=== PATIENT | female | born 1945 | race Caucasian/White ===

== ENCOUNTER 2017-06-29 06:45 | Inpatient (IN) ==
--- NOTE | 2017-06-24 14:08 | EKG Report ---
Stationary ECG Study [facility] Test Date: 06/24/2017 2:04:57 PM Pat Name: ROGERIO FALCON Department: Room: Gender: F Clerical Assistant: Lillian 06-29-17 : 1945 Requested by: Nader Wilder Order Number: [id number] Reading MD: SKYE PORTILLO Intervals [place] Rate: 79 P: 17 MO: 148 QRS: 18 QRSD: 90 T: 60 QT: 372 QTc: 406 Interpretive Statements SINUS RHYTHM T WAVE ABNORMALITY, POSSIBLE LATERAL ISCHEMIA Electronically Signed On 06-24-17 20:56:15 CDT by SKYE PORTILLO [id number]
[2017-06-24 14:11] LABS: Basophils # 0.1 10*3/uL (0.0-0.2); Basophils % 0.6 % (0.0-0.8); Eosinophils # 0.4 10*3/uL (0.0-0.87); Eosinophils % 4.1 % (0.00-10.9); Hemoglobin 14.2 GM/DL (12.0-16.0); Immature Granulocytes % 0.4 %; Immature Granulocytes Absolute 0.04 #; Lymphocytes # 2.9 10*3/uL (1.4-4.0); Lymphocytes % 27.5 % (21.3-54.2); Mean Corpuscular HGB Conc 35.5 GM/DL (32-36); Mean Corpuscular Hemoglobin 32 PG (27-34); Mean Corpuscular Volume 90.9 FL (87-102); Mean Platelet Volume 10.9 FL (9.6-12.0); Monocytes # 0.6 10*3/uL (0.11-0.8); Monocytes % 5.3 % (1.7-12.7); Neutrophils # 6.5 10*3/uL (1.4-7.4); Neutrophils % 62.1 % (38.7-73.9); Platelet Count 214 T/CUMM (130-400); Red Cell Distribution Width 11.7 % (9.3-17.3); White Blood Count 10.5 T/CUMM (4-12)
[2017-06-24 14:27] LABS: Albumin 3.8 G/DL (3.4-5.0); Bilirubin,Total 0.5 MG/DL (0.2-1.0); Calcium 9.5 MG/DL (8.5-10.1); Osmolality,Calculated 276.1 MOS/KG (273-304); Potassium 4.1 MMOL/L (3.5-5.1); Total Protein 7.9 G/DL (6.4-8.3)
[2017-06-29] MEDS ORDERED: SODIUM CHLORIDE 0.9% 100 ML IV ONE (07:31)
[2017-06-29] MEDS ORDERED: ceFAZolin 1,000 MG VIAL ONE (07:31)
[2017-06-29] MEDS: LACTATED RINGERS 1,000 ML IV SCH ×3 (07:45→12:30)
--- NOTE | 2017-06-29 07:45 | History and Physical Update ---
History and Physical Update - History and Physical H&P was reviewed, the patient examined and there: are no changes in the patients condition since last H&P was completed.
[2017-06-29] MEDS ORDERED: FAMOTIDINE 20 MG TABLET PO ONE (08:08)
[2017-06-29] MEDS ORDERED: LORazepam 0.5 MG TABLET PO ONE (08:08)
[2017-06-29] MEDS ORDERED: INSULIN REGULAR 100 UNIT/ML IV ONE (08:46)
[2017-06-29] MEDS ORDERED: INSULIN REGULAR 100 UNIT/ML ONE (08:55)
[2017-06-29] MEDS ORDERED: MIDAZOLAM 2 MG/2 ML VIAL ONE (09:00)
[2017-06-29] MEDS ORDERED: MIDAZOLAM 2 MG/2 ML VIAL IV ONE (09:05)
[2017-06-29] MEDS ORDERED: HEPARIN 5,000 UNIT/1 ML VIAL ONE (09:31)
[2017-06-29] MEDS ORDERED: VANCOMYCIN 1,000 MG VIAL ONE (09:32)
[2017-06-29] MEDS ORDERED: TISSUE ADHESIVE 1 EACH APPLICATOR TOP ONE (09:37)
[2017-06-29] MEDS ORDERED: PHENYLEPHRINE 20 MG/250 ML PREMIX IV ONE (09:55)
[2017-06-29] MEDS ORDERED: GLYCOPYRROLATE 0.4 MG/2 ML VIAL ONE (09:55)
[2017-06-29] MEDS ORDERED: LIDOCAINE 1% 5 ML VIAL ONE (09:55)
[2017-06-29] MEDS ORDERED: KETOROLAC 30 MG/1 ML VIAL ONE (09:55)
[2017-06-29] MEDS ORDERED: ONDANSETRON 4 MG/2 ML VIAL ONE ×2 (09:55→11:54)
[2017-06-29] MEDS ORDERED: NEOSTIGMINE 10 MG/10 ML VIAL ONE (09:55)
[2017-06-29] MEDS ORDERED: HEPARIN 10,000 UNIT/10 ML VIAL ONE (09:55)
[2017-06-29] MEDS ORDERED: NITROGLYCERIN 50 MG/250 ML BOTTLE IV ONE (09:55)
[2017-06-29] MEDS ORDERED: PROMETHAZINE 25 MG/1 ML VIAL IM PRN (11:21)
[2017-06-29] MEDS ORDERED: oxyCODONE/ACETAMINOPHEN 5-325 MG TABLET PO PRN ×2 (11:21)
[2017-06-29] MEDS ORDERED: HYDROmorphone 2 MG/1 ML VIAL IV PRN ×2 (11:21)
[2017-06-29] MEDS ORDERED: DEXTROSE 50% 25 GM/50 ML SYRINGE IV PRN (11:21)
[2017-06-29] MEDS ORDERED: ONDANSETRON 4 MG/2 ML VIAL IV PRN ×2 (11:21→12:02)
[2017-06-29] MEDS ORDERED: NALOXONE 0.4 MG/ML VIAL IV PRN (11:21)
[2017-06-29] MEDS ORDERED: GLUCAGON 1 MG VIAL IM PRN (11:21)
[2017-06-29] MEDS ORDERED: NITROPRUSSIDE 100 MG in DEXTROSE 5% 250 ML IV SCH (11:30)
[2017-06-29] MEDS ORDERED: PHENYLEPHRINE DRIP 40 MG/250 ML PREMIX IV SCH (11:30)
[2017-06-29] MEDS ORDERED: ASPIRIN EC 81 MG TABLET PO SCH (11:30)
--- NOTE | 2017-06-29 11:30 | Operative Note ---
Date of procedure: 06/29/17 Procedure: Dr. Wilder operative report Modesta Taylor. Surgeon: Meño Anesthesia: Jacque general endotracheal Preoperative diagnosis bilateral high-grade carotid stenosis Postoperative diagnosis: Same Procedure: Right carotid endarterectomy with bovine pericardial patch Indications for the procedure Mrs. Taylor is a 71-year-old woman found to have bilateral high-grade carotid stenoses appears that the right side is the greater of the to have recommended a right carotid endarterectomy I have explained the alternatives risks and complications which she understands and accepts Description of the procedure: After the induction of general endotracheal anesthesia the patient is placed in supine position her neck modestly extended and turned to the left or right neck is prepped with ChloraPrep and draped in the usual fashion began by making a skin incision in the crease below the angle of the mandible this is carried into the subplatysmal space I then dissected along the anterior border of the sternocleidomastoid muscle identifying the end internal jugular vein and the anterior facial vein anterior facial vein is ligated hemoclipped and divided the jugular vein is retracted posteriorly and the common carotid artery is exposed and controlled with a maxi vessel loop the vagus nerve is protected as well and then dissected along the carotid bifurcation after giving 5000 units of intravenous heparin the carotid bifurcation is noted I control the external carotid with a vessel loop and then go under the hypoglossal nerve protecting it and controlling the internal carotid with a vessel loop with adequate anticoagulation Vesseloops were brought up the longitudinal arteriotomy was made from the common carotid through the diseased bifurcation to the more normal distal internal carotid artery reasonable back bleeding from the internal is noted this is back flushed and in-line Valentin-Inahara shunt was placed into the internal backflush and placed in the common carotid to reestablish flow standard endarterectomy was carried out removing the diseased intima and media from the carotid bifurcation it feathered nicely on both internal and external carotids all loose flaps of medial removed under loupe magnification endarterectomized segment was flushed with heparinized saline. Bovine pericardial patch and 5-0 Prolene suture used to close the arteriotomy removing the shunt is appropriate time backflushing internal and external and then flushing again with heparinized saline. With the arteriotomy closed flow was initiated from the common carotid into the external and then restored into the internal carotid artery heparin was partially reversed with 25 mg of protamine the incision looks dry it is irrigated with vancomycin pledget of Surgicel is placed over the arteriotomy Doppler signal in the internal/external and common carotid arteries are quite good incision is closed over quarter inch Jolley drain with a running 3-0 Monocryl in the platysma skin clips on the skin blood loss is estimated at 100 cc sponge needle and aspirate counts are correct and the patient taken to recovery in stable condition Surgeon / Physician: Nader Wilder Results - Labs CBC & BMP: 06/24/17 13:57 06/24/17 13:57 Discharge Plan - Discharge Medications No Action metFORMIN [Glucophage] 1,000 mg PO BID W/MEALS Pravastatin [Pravachol] 20 mg PO DAILY Levothyroxine Tab [Synthroid Tab] 150 mcg PO DAILY@0700 Lisinopril [Prinivil] 5 mg PO DAILY Aspirin [Ecotrin] 81 mg PO DAILY Hydrocodone/Acetaminophen [Hydrocodon-Acetaminophn 10-325] 1 each PO Q8HR PRN PRN Reason: Pain Metoprolol Succinate 100 mg PO DAILY Metformin HCl 500 mg PO DAILY W/LUNCH Areds 2 1 tablet PO BID Gabapentin Cap/Tab [Neurontin Cap/Tab] 600 mg PO BEDTIME Glimepiride [Amaryl] 4 mg PO BID W/MEALS Rosuvastatin Calcium [Crestor] 40 mg PO BEDTIME - Follow Up or Referral - Forms/Instructions
[2017-06-29] MEDS ORDERED: HYDROmorphone 2 MG/1 ML VIAL ONE (11:54)
[2017-06-29] MEDS: HYDROmorphone 2 MG/1 ML VIAL IV PRN ×2 (11:55→12:00)
[2017-06-29] MEDS ORDERED: fentaNYL 100 MCG/2 ML VIAL ONE (11:55)
[2017-06-29] MEDS ORDERED: SEVOFLURANE 1 UNIT/15 MINUTE INH ONE (11:55)
[2017-06-29] MEDS: CLOPIDOGREL 75 MG TABLET PO SCH (13:08)
[2017-06-29] MEDS: ASPIRIN EC 81 MG TABLET PO SCH (13:08)
--- NOTE | 2017-06-29 13:50 | Cardiology Consult Note ---
History of Present Illness - Data of Consult Patient: known to practice within the last 3 years Consult date: 06/29/17 Requesting Physician: Nader Wilder Primary care physician: Emy Escalante - Consult Narrative Reason for consult: follow post op RCAE History of present illness: Clicker Operator: Dr. Castillo PCP: Dr. Escalante Ms. Taylor is a 71 year old female who has a history of coronary artery disease, diabetes, carotid artery stenosis, hypertension, hypercholesterolemia, GERD, hypothyroidism, aortic sclerosis, former tobacco use. She is status post three-vessel CABG 07/12/01 with VG to RCA, VG to OM, and VG to diagonal. She is status post diagonal vein graft stent 07/05/14. Last cardiac cath 08/28/17 showed patent diagonal vein graft stent site, patent vein graft to the obtuse marginal branch, patent vein graft to right coronary, 40% stenosis to the LAD, and ejection fraction 60%. She has chronic low back pain which limits her mobility and is followed by Dr. Green at the pain clinic. She also takes Prilosec for GE reflux symptoms. CTA carotid 06/28/2017 showed 90% proximal right ICA stenosis and 80% left ICA stenosis with patent vertebral arteries bilaterally. She had no TIA symptoms and was set up with Dr. Bui to discuss carotid endarterectomy which he underwent today. She is seen postoperatively in the ICU resting comfortably. She is requiring low-dose vasopressor support at this time. She complains of some mild neck discomfort and a headache at this time. She is in sinus bradycardia with rates in the 50s. Her right neck incision is well approximated with ovi intact. IMPRESSION/PLAN: 1. S/P RIGHT : 2. BILATERAL CAROTID STENOSIS: 3. CORONARY ARTERY DISEASE: 4. HYPERTENSION: 5. CC: Nader Wilder MD - Home Medications and Allergies Home Medications: Home Medications Medication Instructions Recorded Confirmed Type Aspirin [Ecotrin] 81 mg PO DAILY 02/04/16 06/29/17 History Levothyroxine Tab [Synthroid Tab] 150 mcg PO DAILY@0700 02/04/16 06/29/17 History Lisinopril [Prinivil] 5 mg PO DAILY 02/04/16 06/29/17 History Pravastatin [Pravachol] 20 mg PO DAILY 02/04/16 06/29/17 History metFORMIN [Glucophage] 1,000 mg PO BID W/MEALS 02/04/16 06/29/17 History Areds 2 1 tablet PO BID 06/24/17 06/29/17 History Gabapentin Cap/Tab [Neurontin 600 mg PO BEDTIME 06/24/17 06/29/17 History Cap/Tab] Glimepiride [Amaryl] 4 mg PO BID W/MEALS 06/24/17 06/29/17 History Hydrocodone/Acetaminophen 1 each PO Q8HR PRN 06/24/17 06/29/17 History [Hydrocodon-Acetaminophn 10-325] Metformin HCl 500 mg PO DAILY W/LUNCH 06/24/17 06/24/17 History Metoprolol Succinate 100 mg PO DAILY 06/24/17 06/29/17 History Rosuvastatin Calcium [Crestor] 40 mg PO BEDTIME 06/24/17 06/29/17 History Allergies/Adverse Reactions: Allergies Allergy/AdvReac Type Severity Reaction Status Date / Time No Known Allergies Allergy Verified 06/29/17 07:14 Medical,Surgical,& Family Hx - Medical History Cardio: History of: CAD, Hypertension, Cardiovascular Problems (DR CASTILLO. LAST VISIT 05/2017.) Neurology: History of: Peripheral Neuropathy (LEGS.) No history of: Seizures HEENT: History of: Ear Problem (HEARING LOSS RT EAR.), Dental Problems (BRIDGES. ) Endocrine: History of: Diabetes Mellitus (NIDDM), Dyslipidemia, Thyroid Disorder Respiratory: History of: Bronchitis (PAST HX.), Respiratory Problems (FLU VAC- YES 2015; PNEU VAC- NO.) Gastrointestinal: History of: Diverticulitis/ Diverticulosis, GERD, Hemorrhoids (INTERNAL HEMORRHOIDS.), Polyps Musculoskeletal: History of: Back/Neck Problems, Musculoskeletal Problems ( lumbar disk disease, SPINAL STENOSIS.) Hematology: No history of: Blood Transfusion Reaction Other: No history of: Anesthesia Reactions - Surgical History Cardiac Surgeries: Sugical HX of: Cardiac Catheterization, Cardiac Surgery ( cabg [address] GALICIA, vein graph stent 2002) HEENT Surgeries: Surgical HX of: Eye Surgery (cataract sly), Tonsilectomy & Adenoidectomy Patient denies: Thyroid Surgery Abdominal Surgeries: Surgical HX of: Appendectomy, Cholecystectomy, Colonoscopy , EGD Reproductive Surgeries: Surgical HX of;: Section (X3), Hysterectomy Orthopedic Surgeries: Surgical HX of;: Orthopedic Surgery (BILATERAL RCR), Spinal Surgery, Total Hip Replacement (RT HIP), Total Knee Replacement (left) - Family History Family History: Denies;: Family Cancer - Social History Smoking Status: Former smoker Frequency of Alcohol Use: None Type of Drug Use: None Physical Examination Vital Signs Temp Pulse Resp BP Pulse Ox 97.4 F L 68 20 121/66 95 06/29/17 07:23 06/29/17 07:23 06/29/17 07:23 06/29/17 07:23 06/29/17 07:23 Result/EKG - Labs CBC & BMP: 06/24/17 13:57 06/24/17 13:57 Labs: Laboratory Results - last 24 hr 06/29/17 08:07 POC Glucose 299 H Quality Measures - VTE Contraindication to Pharmacological VTE Prophylaxis: High Risk of Bleeding
--- NOTE | 2017-06-29 14:08 | Anesthesia Post-Op ---
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
--- NOTE | 2017-06-29 14:23 | Cardiology Consult Note ---
Assessment and Plan (1) Postop carotid endarterectomy surveillance, encounter for Status: Acute Assessment and plan: 1. 71-year-old WF with hypertension, dyslipidemia, diabetes, status post carotid artery endarterectomy this morning doing well clinically 2. Status post CABG 3 vessel 2000, with patent vein grafts August 2014, and no ischemia on myocardial scan May 2017 3. Bradycardia postop with heart rate in the upper 40s lower 50s; she reportedly took all her medications this morning including her Toprol 100; hold for now and observe heart rate and blood pressure. 4. She is currently on low-dose margarette-, would give small normal saline bolus and wean margarette-as able. 5. Check EKG and troponin in the morning. Current Visit: Yes (2) CAD (coronary artery disease) of artery bypass graft Status: Acute Current Visit: Yes History of Present Illness - Consult Narrative History of present illness: Ms. Taylor is a 71 [address] Dr. alfonso immediately status post carotid artery endarterectomy. She expectantly has a sore neck but has no chest discomfort shortness of breath and is alert and oriented. Her is with her. She has not had any recent chest discomfort shortness of breath dizziness. She denies any history of stroke or TIA. She denies history of [place] but acknowledges her remote history of CABG. CC: Nader Wilder MD - Home Medications and Allergies Home Medications: Home Medications Medication Instructions Recorded Confirmed Type Aspirin [Ecotrin] 81 mg PO DAILY 02/04/16 06/29/17 History Levothyroxine Tab [Synthroid Tab] 150 mcg PO DAILY@0700 02/04/16 06/29/17 History Lisinopril [Prinivil] 5 mg PO DAILY 02/04/16 06/29/17 History Pravastatin [Pravachol] 20 mg PO DAILY 02/04/16 06/29/17 History metFORMIN [Glucophage] 1,000 mg PO BID W/MEALS 02/04/16 06/29/17 History Areds 2 1 tablet PO BID 06/24/17 06/29/17 History Gabapentin Cap/Tab [Neurontin 600 mg PO BEDTIME 06/24/17 06/29/17 History Cap/Tab] Glimepiride [Amaryl] 4 mg PO BID W/MEALS 06/24/17 06/29/17 History Hydrocodone/Acetaminophen 1 each PO Q8HR PRN 06/24/17 06/29/17 History [Hydrocodon-Acetaminophn 10-325] Metformin HCl 500 mg PO DAILY W/LUNCH 06/24/17 06/24/17 History Metoprolol Succinate 100 mg PO DAILY 06/24/17 06/29/17 History Rosuvastatin Calcium [Crestor] 40 mg PO BEDTIME 06/24/17 06/29/17 History Allergies/Adverse Reactions: Allergies Allergy/AdvReac Type Severity Reaction Status Date / Time No Known Allergies Allergy Verified 06/29/17 07:14 Medical,Surgical,& Family Hx - Medical History Cardio: History of: CAD, Hypertension, Cardiovascular Problems (DR VAN. LAST VISIT 05/2017.) Neurology: History of: Peripheral Neuropathy (LEGS.) No history of: Seizures HEENT: History of: Ear Problem (HEARING LOSS RT EAR.), Dental Problems (BRIDGES. ) Endocrine: History of: Diabetes Mellitus (NIDDM), Dyslipidemia, Thyroid Disorder Respiratory: History of: Bronchitis (PAST HX.), Respiratory Problems (FLU VAC- YES 2015; PNEU VAC- NO.) Gastrointestinal: History of: Diverticulitis/ Diverticulosis, GERD, Hemorrhoids (INTERNAL HEMORRHOIDS.), Polyps Musculoskeletal: History of: Back/Neck Problems, Musculoskeletal Problems ( lumbar disk disease, SPINAL STENOSIS.) Hematology: No history of: Blood Transfusion Reaction Other: No history of: Anesthesia Reactions - Surgical History Cardiac Surgeries: Sugical HX of: Cardiac Catheterization, Cardiac Surgery ( cabg [address] GALICIA, vein graph stent 2002) HEENT Surgeries: Surgical HX of: Eye Surgery (cataract sly), Tonsilectomy & Adenoidectomy Patient denies: Thyroid Surgery Abdominal Surgeries: Surgical HX of: Appendectomy, Cholecystectomy, Colonoscopy , EGD Reproductive Surgeries: Surgical HX of;: Section (X3), Hysterectomy Orthopedic Surgeries: Surgical HX of;: Orthopedic Surgery (BILATERAL RCR), Spinal Surgery, Total Hip Replacement (RT HIP), Total Knee Replacement (left) - Family History Family History: Denies;: Family Cancer - Social History Smoking Status: Former smoker Frequency of Alcohol Use: None Type of Drug Use: None Physical Examination Vital Signs Temp Pulse Resp BP Pulse Ox 97.4 F L 68 20 121/66 95 06/29/17 07:23 06/29/17 07:23 06/29/17 07:23 06/29/17 07:23 06/29/17 07:23 General: Present: Appears Well, No Apparent Distress Neck: Present: Other (Heavily bandaged neck which limits her mobility per) Cardiac: Present: Reg Rate and Rhythm, No Murmur Lungs: Present: Clear Ascult./Percussion, No Wheezes Abdomen: Present: Soft, Non-Tender Extremities: Absent: Edema, Cyanosis Result/EKG - Labs CBC & BMP: 06/24/17 13:57 06/24/17 13:57 Labs: Laboratory Results - last 24 hr 06/29/17 08:07 POC Glucose 299 H Quality Measures - VTE Contraindication to Pharmacological VTE Prophylaxis: High Risk of Bleeding
--- NOTE | 2017-06-29 16:22 | Event Note ---
Ms. Taylor is awake alert and oriented neurologically intact good handgrip tongue midline no facial asymmetry neck looks good with no hematoma she has been a bit hypotensive and we are holding her antihypertensives Jose Daniel-Synephrine overnight overall appears to be doing well
[2017-06-29] MEDS: GLIMEPIRIDE 4 MG TABLET PO SCH (17:27)
[2017-06-29] MEDS ORDERED: ROSUVASTATIN 20 MG TABLET PO SCH (21:00)
[2017-06-29] MEDS ORDERED: GABAPENTIN 600 MG TABLET PO SCH (21:00)
[2017-06-30] MEDS: LACTATED RINGERS 1,000 ML IV SCH ×4 (02:59→08:16)
--- NOTE | 2017-06-30 06:43 | EKG Report ---
Stationary ECG Study [facility] Test Date: 06/30/2017 6:41:27 AM Pat Name: ROGERIO FALCON Department: Room: 106 Gender: F Radio Maintainer: SANGEETHA : 1945 Requested by: Giovanni Aviles Order Number: [id number] Reading MD: RENEE BEDOLLA Intervals [place] Rate: 59 P: -3 DE: 128 QRS: -11 QRSD: 82 T: 133 QT: 417 QTc: 416 Interpretive Statements SINUS RHYTHM@59BPM LOW QRS VOLTAGE IN PRECORDIAL LEADS VOLTAGE CRITERIA FOR LVH NST , POSSIBLE ISCHEMIA Electronically Signed On 07-03-17 16:44:23 CDT by RENEE BEDOLLA [email or web address]
[2017-06-30] MEDS ORDERED: LEVOTHYROXINE 150 MCG TABLET PO SCH (07:00)
--- NOTE | 2017-06-30 08:18 | Cardiology Progress Note ---
<Sarahy Delgado E - Last Filed: 06/30/17 08:05> Assessment and Plan - Time spent with patient Time spent with patient: Less than 30 minutes (1) Postop carotid endarterectomy surveillance, encounter for Status: Acute Assessment and plan: See plan of care listed below. Current Visit: Yes (2) CAD (coronary artery disease) of artery bypass graft Status: Chronic Assessment and plan: See plan of care listed below. Current Visit: Yes (3) S/P CABG x 3 Status: Chronic Assessment and plan: See plan of care listed below. Current Visit: Yes (4) Hypertension Status: Chronic Assessment and plan: See plan of care listed below. Current Visit: Yes (5) Diabetes mellitus Status: Chronic Assessment and plan: See plan of care listed below. Current Visit: Yes Cardiology - PN: Subj Interval history: Extra Hand: Dr. Castillo SUMMARY: Ms. Taylor is a 71-year-old WF who is admitted for right carotid endarterectomy. She has a history of coronary artery disease, hypertension, diabetes, dyslipidemia, GERD. She is status [place] [address] Mosquera followed by a vein graft stent in 2002. She was noted to have patent vein grafts August 2014 and no ischemia on myocardial scan May 2017. We were asked to follow her postoperatively. 2016: Ms. Taylor is up to the bedside chair upon exam this morning. She reports she is feeling well and she states she is ready to go home. Her right radial arterial line was just discontinued and her right neck drain remains in place. Her right neck incision is well approximated with ovi intact, no redness, or edema at site. Vital signs have been stable. We will continue to follow along. Dr. Gastelum to follow with further plan and addendum. IMPRESSION/PLAN: 1. POST OP RIGHT : Post op day #1. Patient is doing well. Continue Plavix, aspirin, statin. Would reintroduce beta yulissa and GAL inhibitor when okay with attending. 2. CORONARY ARTERY DISEASE: She was noted to have patent vein grafts August 2014 and no ischemia on myocardial scan May 2017. 3. S/P CABG X3: She is status post three-v[place] [address] Mosquera followed by a vein graft stent in 2002. 4. HYPERTENSION: Currently well controlled. Will continue to monitor and adjust accordingly. 5. DIABETES: Continue to monitor glucose levels. Exam (Progress Note) - Constitutional Vitals: Period Temp Pulse Resp BP Sys/Galvan Pulse Ox Last 24 Hr 97.1 F-99.1 F 46-70 12-19 89-167/26-71 92-100 Exam: General appearance: Appears well. Pleasant and cooperative. Overweight, no acute distress. Head exam: Present: normal inspection, normocephalic, atraumatic. Absent: hematoma, laceration Eye exam: Present: EOMI. Absent: conjunctival injection, nystagmus, periorbital swelling, scleral icterus, laceration to eyelids, jaundice Pupils: Present: PERRL. Absent: constricted, dilated, fixed, irregular, unequal ENT exam: Present: normal exam, normal external ear exam, mucous membranes moist. Heavily bandaged neck limits mobility. Neck exam: Present: normal inspection, midline trachea. Absent: masses, lymphadenopathy, tenderness, thyromegaly Respiratory exam: Present: clear to auscultation bilaterally. Absent: accessory muscle use, chest wall tenderness, rales, rhonchi, wheezing. Cardiovascular exam: Present: regular rate and rhythm. Absent: gallop, JVD, rubs GI/Abdominal exam: Present: normal bowel sounds, soft. Absent: distended, firm , hernia, mass, tenderness. Extremities exam: Present: Normal Gait, No Clubbing, No Cyanosis, Upper Extr. Pulses 2+, Lower Extr. Pulses 2+, No edema. Capillary refill less than 3 seconds. Musculoskeletal: Present: No Fluid Collection, No Pain, Normal Range of Motion Back exam: Present: normal inspection. Absent: muscle spasm, vertebral tenderness Neurological exam: Present: awake, alert, oriented X3, Moves all extremities well without hemiparesis or paralysis. Grossly intact without resting or essential tremor Psychiatric exam: Present: normal affect, normal mood Skin exam: Present: normal color, warm, dry, intact. Right neck incision well approximated, ovi intact, s redness. Surgical drain in place. Absent: cyanosis, diaphoretic, rash, urticaria Result/EKG - Labs CBC & BMP: 06/24/17 13:57 06/24/17 13:57 Lab Results: I have reviewed the past 24 hour labs Labs: Laboratory Results - last 24 hr 06/29/17 06/29/17 06/30/17 08:07 16:17 04:25 POC Glucose 299 H 195 H Troponin I < 0.015 06/30/17 07:12 POC Glucose 156 H Troponin I - EKG EKG results: interpreted by me, sinus rhythm Quality Measures - VTE Contraindication to Pharmacological VTE Prophylaxis: High Risk of Bleeding Specialty Discharge - Follow Up or Referrals Follow up with: Nader Wilder MD [Physician] - 07/07/17 2:30 pm (APPT. WITH IN ONE WEEK ON @ 2:30PM) <Giovanni Gastelum - Last Filed: 06/30/17 10:13> Assessment and Plan (1) Postop carotid endarterectomy surveillance, encounter for Status: Acute Current Visit: Yes (2) CAD (coronary artery disease) of artery bypass graft Status: Chronic Current Visit: Yes Exam (Progress Note) - Constitutional Vitals: Period Temp Pulse Resp BP Sys/Galvan Pulse Ox Last 24 Hr 97.1 F-99.1 F 46-70 12-19 89-167/- 92-100 Result/EKG - Labs CBC & BMP: 06/24/17 13:57 06/24/17 13:57 Labs: Laboratory Results - last 24 hr 06/29/17 06/30/17 06/30/17 16:17 04:25 07:12 POC Glucose 195 H 156 H Troponin I < 0.015
--- NOTE | 2017-06-30 08:21 | Event Note ---
Ms. Taylor is awake alert oriented vital signs are good neurologically intact with good handgrip tongue midline no facial numbness. Neck looks good with no hematoma have removed the drain. Stopping all IVs a Cabrera regular breakfast and probably home this afternoon
[2017-06-30] MEDS: ASPIRIN EC 81 MG TABLET PO SCH (08:28)
[2017-06-30] MEDS: CLOPIDOGREL 75 MG TABLET PO SCH (08:28)
[2017-06-30] MEDS: GLIMEPIRIDE 4 MG TABLET PO SCH (08:28)
[2017-06-30] MEDS ORDERED: METOPROLOL SUCCINATE XL 100 MG TABLET PO SCH (09:00)
[2017-06-30] MEDS ORDERED: PRAVASTATIN 20 MG TABLET PO SCH (09:00)
[2017-06-30 09:17] VITALS: BP 120/61
--- NOTE | 2017-06-30 11:23 | Pathology Report from [facility] ---
[facility] ACCESSION # : [id number] PATIENT NAME : Rogerio Taylor ORDERING DR : IRIS CARRILLO MD CLINICAL HX: Asymptomatic high grade stenosis of both internal carotid arteries POST-OP DX: Same SPECIMEN INFO: Right carotid artery plaque GROSS DESCRIPTION: The specimen is received in formalin labeled with the patients name and consists of three yellow-pink fragments of endarterectomy tissue collectively measuring 3.5 x 2.8 cm with calcifications present within the lumen. Float Operator tissue submitted in one cassette following decalcification. DIAGNOSIS FOR ROGERIO TAYLOR: RIGHT CAROTID ARTERY PLAQUE, ENDARTERECTOMY: Calcified atheromatous plaque. COLLECTED DATE: 06/29/2017 [facility] REPORT DATE: 06/30/2017 ELECTRONICALLY SIGNED BY: Juliet Espinoza M.D. 06/30/2017 - 9:41:34 MTDAbundio
--- NOTE | 2017-06-30 16:32 | Discharge Summary ---
Hospital Course - Hospital Course Hospital Course: Modesta Taylor is a 71-year-old woman admitted for right carotid endarterectomy with bilateral carotid stenosis much worse on the right than the left she has done well postoperatively she is fully awake alert and oriented her vital signs are stable her neck looks good with no hematoma she is neurologically intact tongue is midline voice is normal good handgrip she [place] in the intensive care unit tolerating a diet beds have not been available upstairs therefore she is discharged from the intensive care unit today. She will go home with 81 mg aspirin and 75 mg Plavix so she will resume metformin this afternoon or in the morning and is still on glyburide she has [place] at home for pain have advised her wound care exercise restrictions expected recovery possible complications driving restrictions I will see her in the office next week for staple removal Specialty Discharge - Follow Up or Referrals Follow up with: Nader Wilder MD [Physician] - 07/07/17 2:30 pm (APPT. WITH IN ONE WEEK ON @ 2:30PM) Discharge Plan - Discharge Data Disposition: Disch To Home/Self Care Condition at Discharge: Stable Discharge Diet: diabetic diet Activity: resume usual activities as tolerated Hygiene: may shower Weight Bearing at Discharge: full weight bearing Driving: not until seen by doctor Contact your physician if you experience:: fever over 101, Redness or swelling, Bleeding - Discharge Medications New Clopidogrel [Plavix] 75 mg PO DAILY #60 tablet Continue metFORMIN [Glucophage] 1,000 mg PO BID W/MEALS Pravastatin [Pravachol] 20 mg PO DAILY Levothyroxine Tab [Synthroid Tab] 150 mcg PO DAILY@0700 Lisinopril [Prinivil] 5 mg PO DAILY Aspirin [Ecotrin] 81 mg PO DAILY Hydrocodone/Acetaminophen [Hydrocodon-Acetaminophn 10-325] 1 each PO Q8HR PRN PRN Reason: Pain Metoprolol Succinate 100 mg PO DAILY Gabapentin Cap/Tab [Neurontin Cap/Tab] 600 mg PO BEDTIME Glimepiride [Amaryl] 4 mg PO BID W/MEALS Rosuvastatin Calcium [Crestor] 40 mg PO BEDTIME No Action Metformin HCl 500 mg PO DAILY W/LUNCH Areds 2 1 tablet PO BID - Follow Up or Referral Follow Up: Nader Wilder MD [Physician] - 07/07/17 2:30 pm (APPT. WITH IN ONE WEEK ON @ 2:30PM) - Forms/Instructions Exam - Constitutional Vitals: Period Temp Pulse Resp BP Sys/Galvan Pulse Ox Last 24 Hr 97.5 F-97.9 F 49-70 - 89-167/ 92-100 Discharge Results Procedures and tests throughout hospitalization: Pending Orders 06/29/17 12:35 MRSA Surveillence, Inf Control Routine Labs on day of discharge: Labs from last 24 hours 06/30/17 06/30/17 06/30/17 15:54 11:10 07:12 POC Glucose 286 H 309 H 156 H Troponin I 06/30/17 06/29/17 04:25 16:17 POC Glucose 195 H Troponin I < 0.015 DS: Provider Date of admission: 06/29/17 06:45 Primary care physician: Emy Escalante, Attending physician on admission: Nader Wilder MD Consults: 06/29/17 11:30 Consult to Physician [CONS] Routine Comment: patient known to you Consulting Provider: Demarco Castillo Consulting Provider Notified: Yes Consult to Specialist Group: Cardiology Person Notified: [email or web address] Date Notified: 06/29/17 Time Notified: 12:40 Discharging clinician: Nader Wilder MD
== END 2017-06-30 16:50 | disposition home or self-care (01) | DRG 39 ==
LOC: N.SDSINP 06:45 → N.ICU 11:52
PROVIDERS: ADMIT Surgery; ATTEND Surgery

== ENCOUNTER 2017-08-24 06:40 | Inpatient (IN) ==
[2017-08-12 11:43] LABS: Basophils % 0.5 % (0.0-0.8); Eosinophils # 0.3 10*3/uL (0.0-0.87); Hematocrit 41.2 VOL% (35.7-47.0); Hemoglobin 14.4 GM/DL (12.0-16.0); Immature Granulocytes % 0.3 %; Immature Granulocytes Absolute 0.02 #; Lymphocytes # 1.7 10*3/uL (1.4-4.0); Lymphocytes % 25.4 % (21.3-54.2); Mean Corpuscular Hemoglobin 32 PG (27-34); Mean Corpuscular Volume 92.2 FL (87-102); Mean Platelet Volume 10.8 FL (9.6-12.0); Monocytes # 0.5 10*3/uL (0.11-0.8); Monocytes % 6.8 % (1.7-12.7); Neutrophils # 4.1 10*3/uL (1.4-7.4); Platelet Count 168 T/CUMM (130-400); Red Blood Count 4.47 MC/CUMM (3.8-5.5); White Blood Count 6.6 T/CUMM (4-12)
[2017-08-12 12:47] LABS: Osmolality,Calculated 284.8 MOS/KG (273-304); Potassium 4.1 MMOL/L (3.5-5.1)
[~2017-08-24 06:40] MED LIST: HEPARIN 5,000 UNIT/1 ML VIAL ONE; VANCOMYCIN 500 MG VIAL ONE
[2017-08-24] MEDS ORDERED: ceFAZolin 1,000 MG VIAL ONE (08:14)
[2017-08-24] MEDS: LACTATED RINGERS 1,000 ML IV SCH ×3 (08:21→21:06)
[2017-08-24] MEDS ORDERED: NEOSTIGMINE 10 MG/10 ML VIAL ONE ×2 (08:24→10:34)
[2017-08-24] MEDS ORDERED: ONDANSETRON 4 MG/2 ML VIAL ONE ×2 (08:24→10:31)
[2017-08-24] MEDS ORDERED: PROPOFOL 200 MG/20 ML VIAL IV ONE ×2 (08:24→10:33)
[2017-08-24] MEDS ORDERED: DEXAMETHASONE 10 MG/1 ML VIAL ONE (08:24)
[2017-08-24] MEDS ORDERED: LABETALOL 100 MG/20 ML VIAL IV ONE ×2 (08:24→10:30)
[2017-08-24] MEDS ORDERED: GLYCOPYRROLATE 0.4 MG/2 ML VIAL ONE ×2 (08:24→10:30)
[2017-08-24] MEDS ORDERED: ROCURONIUM 100 MG/10 ML VIAL IV ONE ×2 (08:24→10:34)
[2017-08-24] MEDS ORDERED: LIDOCAINE 2% 5 ML VIAL ONE (08:24)
[2017-08-24] MEDS ORDERED: oxyCODONE/ACETAMINOPHEN 5-325 MG TABLET PO PRN ×2 (10:05)
[2017-08-24] MEDS ORDERED: HYDROmorphone 2 MG/1 ML VIAL IV PRN ×2 (10:05)
[2017-08-24] MEDS ORDERED: GLUCAGON 1 MG VIAL IM PRN (10:05)
[2017-08-24] MEDS ORDERED: PROMETHAZINE 25 MG/1 ML VIAL IM PRN (10:05)
[2017-08-24] MEDS ORDERED: NALOXONE 0.4 MG/ML VIAL IV PRN (10:05)
[2017-08-24] MEDS ORDERED: DEXTROSE 50% 25 GM/50 ML VIAL IV PRN (10:05)
[2017-08-24] MEDS ORDERED: ONDANSETRON 4 MG/2 ML VIAL IV PRN (10:05)
[2017-08-24] MEDS ORDERED: DEXAMETHASONE 4 MG/1 ML VIAL ONE (10:30)
[2017-08-24] MEDS ORDERED: CLOPIDOGREL 75 MG TABLET PO SCH (10:30)
[2017-08-24] MEDS ORDERED: ETOMIDATE 20 MG/10 ML VIAL IV ONE (10:30)
[2017-08-24] MEDS ORDERED: ASPIRIN EC 81 MG TABLET PO SCH (10:30)
[2017-08-24] MEDS ORDERED: PHENYLEPHRINE DRIP 20 MG/250 ML PREMIX IV ONE (10:33)
[2017-08-24] MEDS ORDERED: fentaNYL 100 MCG/2 ML VIAL ONE (10:33)
[2017-08-24] MEDS ORDERED: DESFLURANE 1 UNIT/15 MINUTE INH ONE (10:33)
[2017-08-24] MEDS ORDERED: NITROGLYCERIN DRIP 50 MG/250 ML BOTTLE IV ONE (10:34)
[2017-08-24 10:57] LABS: Troponin I Only < 0.015 NG/ML (0.00-0.045)
[2017-08-24] MEDS ORDERED: NITROGLYCERIN DRIP 50 MG/250 ML BOTTLE IV SCH (12:30)
[2017-08-24] MEDS: PHENYLEPHRINE DRIP 40 MG/250 ML PREMIX IV SCH (12:45)
[2017-08-24] MEDS: NITROPRUSSIDE 100 MG in DEXTROSE 5% 250 ML IV SCH (13:32)
[2017-08-24] MEDS: ASPIRIN EC 81 MG TABLET PO SCH (15:40)
[2017-08-24] MEDS: CLOPIDOGREL 75 MG TABLET PO SCH (15:40)
[2017-08-24] MEDS: LISINOPRIL 5 MG TABLET PO SCH (16:09)
[2017-08-24 17:31] LABS: Troponin I Only < 0.015 NG/ML (0.00-0.045)
[2017-08-24] MEDS: GLIMEPIRIDE 4 MG TABLET PO SCH (17:45)
[2017-08-24] MEDS ORDERED: ROSUVASTATIN 20 MG TABLET PO SCH (21:00)
[2017-08-24] MEDS ORDERED: GABAPENTIN 600 MG TABLET PO SCH (21:00)
[2017-08-24] MEDS: METOPROLOL SUCCINATE XL 100 MG TABLET PO SCH (21:11)
[2017-08-25 00:46] LABS: Troponin I Only < 0.015 NG/ML (0.00-0.045)
[2017-08-25] MEDS: LACTATED RINGERS 1,000 ML IV SCH ×2 (05:38→08:01)
[2017-08-25] MEDS ORDERED: LEVOTHYROXINE 150 MCG TABLET PO SCH (07:30)
[2017-08-25] MEDS: LISINOPRIL 5 MG TABLET PO SCH (08:04)
[2017-08-25] MEDS: CLOPIDOGREL 75 MG TABLET PO SCH (08:05)
[2017-08-25] MEDS: METOPROLOL SUCCINATE XL 100 MG TABLET PO SCH (08:06)
[2017-08-25] MEDS: GLIMEPIRIDE 4 MG TABLET PO SCH ×2 (08:07→16:43)
[2017-08-25] MEDS: ASPIRIN EC 81 MG TABLET PO SCH (08:07)
[2017-08-25] MEDS ORDERED: PRAVASTATIN 20 MG TABLET PO SCH (09:00)
[2017-08-25] MEDS ORDERED: METOPROLOL SUCCINATE XL 100 MG TABLET PO SCH (09:00)
[2017-08-25] MEDS ORDERED: DEXTROSE 50% 25 GM/50 ML VIAL IV PRN (11:57)
[2017-08-25] MEDS ORDERED: GLUCAGON 1 MG VIAL IM PRN (11:57)
[2017-08-25] MEDS ORDERED: metFORMIN 500 MG TABLET PO SCH ×2 (12:00→17:00)
[2017-08-25] MEDS: PHENYLEPHRINE DRIP 40 MG/250 ML PREMIX IV SCH (12:29)
[2017-08-25] MEDS: NITROPRUSSIDE 100 MG in DEXTROSE 5% 250 ML IV SCH (12:29)
[2017-08-25] MEDS: INSULIN REGULAR 100 UNIT/ML SUBCUT SCH ×2 (14:33→16:37)
[2017-08-25 16:56] VITALS: BP 180/85
== END 2017-08-25 16:50 | disposition home or self-care (01) | DRG 39 ==
LOC: N.SDSINP 06:40 → N.ICU 11:09 → N.4E 08-25 11:40
PROVIDERS: ADMIT Surgery; ATTEND Surgery

== ENCOUNTER 2018-03-21 17:55 | Inpatient (IN) ==
[2018-03-21] MEDS ORDERED: DEXTROSE 50% 25 GM/50 ML SYRINGE IV ONE (18:22)
[2018-03-21] MEDS ORDERED: SODIUM CHLORIDE 0.9% 1,000 ML IV STA (18:36)
[2018-03-21 18:44] LABS: Basophils # 0.1 10*3/uL (0.0-0.2); Basophils % 0.6 % (0.0-0.8); Hematocrit 47.4 VOL% (35.7-47.0); Hemoglobin 15.2 GM/DL (12.0-16.0); Immature Granulocytes % 4.7 %; Immature Granulocytes Absolute 1.05 #; Lymphocytes # 2.2 10*3/uL (1.4-4.0); Lymphocytes % 9.8 % (21.3-54.2); Mean Corpuscular HGB Conc 32.1 GM/DL (32-36); Mean Corpuscular Hemoglobin 31 PG (27-34); Mean Corpuscular Volume 96.9 FL (87-102); Mean Platelet Volume 11.4 FL (9.6-12.0); Monocytes # 2.1 10*3/uL (0.11-0.8); Monocytes % 9.4 % (1.7-12.7); Neutrophils # 16.8 10*3/uL (1.4-7.4); Neutrophils % 75.5 % (38.7-73.9); Platelet Count 293 T/CUMM (130-400); Red Blood Count 4.89 MC/CUMM (3.8-5.5); Red Cell Distribution Width 12.1 % (9.3-17.3); White Blood Count 22.2 T/CUMM (4-12)
[2018-03-21] MEDS ORDERED: DEXTROSE 50% 25 GM/50 ML VIAL IV STA (19:05)
[2018-03-21 19:18] LABS: Albumin 3.8 G/DL (3.4-5.0); Bilirubin,Total 0.4 MG/DL (0.2-1.0); Calcium 8.9 MG/DL (8.5-10.1); Osmolality,Calculated 298.7 MOS/KG (273-304); Potassium 5.2 MMOL/L (3.5-5.1); Total Protein 7.9 G/DL (6.4-8.3)
[2018-03-21 19:21] LABS: Lactic Acid > 15.0 MMOL/L (0.4-2.0)
[2018-03-21] MEDS ORDERED: ONDANSETRON 4 MG/2 ML VIAL IV STA (20:08)
[2018-03-21] MEDS ORDERED: SODIUM CHLORIDE 0.9% 2,000 ML IV STA (20:38)
[2018-03-21] MEDS ORDERED: CEFEPIME 2,000 MG in SODIUM CHLORIDE 0.9% 100 ML IV STA (20:56)
[2018-03-21] MEDS ORDERED: VANCOMYCIN INJ 1,000 MG in SODIUM CHLORIDE 0.9% 250 ML IV STA (20:56)
[2018-03-21 21:16] LABS: Band Neutrophils 5 % (0-10); Lymphocytes 11 % (20-55); Metamyelocytes 2 %; Myelocytes 2 %; Platelet Estimate Normal; Segmented Neutrophils 74 % (50-85); Total Cells Counted 100
[2018-03-21] MEDS ORDERED: CEFEPIME 2,000 MG VIAL ONE (21:16)
[2018-03-21] MEDS ORDERED: SODIUM CHLORIDE 0.9% 100 ML IV ONE (21:17)
[2018-03-21] MEDS ORDERED: metroNIDAZOLE INJ 500 MG in PREMIX 1 EACH IV STA (22:58)
[2018-03-22] MEDS ORDERED: KETOROLAC 30 MG/1 ML VIAL IV STA (00:52)
[2018-03-22] MEDS ORDERED: MORPHINE 4 MG/1 ML VIAL IV STA (00:53)
[2018-03-22] MEDS ORDERED: ONDANSETRON 4 MG/2 ML VIAL IV PRN (01:13)
[2018-03-22] MEDS ORDERED: SODIUM CHLORIDE 0.9% 1,000 ML IV SCH (01:30)
[2018-03-22 01:41] LABS: Apearance,Urine Slightly Hazy (Clear); Bacteria,Urine Few /HPF (Few); Bilirubin,Urine Negative (Negative); Blood, Urine Moderate mg/dL (Negative); Glucose,Urine (UA) 50 mg/dL (Negative); Ketones,Urine 5 mg/dL (Negative); Mucus,Urine Occasional /LPF (Occasional); Nitrite,Urine Negative (Negative); Protein,Urine 100 MG/DL; RBC,Urine 23 /HPF (0-4); Urine Color Yellow (Yellow); Urine Specific Gravity 1.009 (1.001-1.035); Urine Urobilinogen < 2.0 EU/DL (0.2-1.0); WBC,Urine 10 /HPF (0-6)
[2018-03-22] MEDS ORDERED: DEXTROSE 50% 25 GM/50 ML SYRINGE IV ONE (02:01)
[2018-03-22] MEDS ORDERED: DEXTROSE 50% 25 GM/50 ML VIAL IV PRN (02:02)
[2018-03-22] MEDS ORDERED: DEXTROSE 50% 25 GM/50 ML VIAL IV ONE ×2 (02:02→02:03)
[2018-03-22] MEDS ORDERED: GLUCAGON 1 MG VIAL IM PRN (02:02)
[2018-03-22] MEDS: DEXTROSE 5% NACL 0.9% 1,000 ML IV SCH ×20 (02:26→20:24)
[2018-03-22] MEDS: metroNIDAZOLE INJ 500 MG in PREMIX 1 EACH IV SCH ×3 (03:11→18:08)
[2018-03-22] MEDS: MORPHINE 4 MG/1 ML VIAL IV PRN (04:21)
[2018-03-22] MEDS ORDERED: LORazepam 2 MG/1 ML VIAL IV ONE (05:00)
[2018-03-22 05:27] LABS: Basophils # 0.1 10*3/uL (0.0-0.2); Basophils % 0.7 % (0.0-0.8); Eosinophils % 0.1 % (0.00-10.9); Hematocrit 42.7 VOL% (35.7-47.0); Hemoglobin 13.6 GM/DL (12.0-16.0); Immature Granulocytes % 5.5 %; Immature Granulocytes Absolute 1.01 #; Lymphocytes # 1.6 10*3/uL (1.4-4.0); Lymphocytes % 8.4 % (21.3-54.2); Mean Corpuscular HGB Conc 31.9 GM/DL (32-36); Mean Corpuscular Hemoglobin 32 PG (27-34); Mean Platelet Volume 12.2 FL (9.6-12.0); Monocytes # 1.5 10*3/uL (0.11-0.8); Monocytes % 8.4 % (1.7-12.7); Neutrophils # 14.2 10*3/uL (1.4-7.4); Neutrophils % 76.9 % (38.7-73.9); Platelet Count 232 T/CUMM (130-400); Red Blood Count 4.27 MC/CUMM (3.8-5.5); Red Cell Distribution Width 12.4 % (9.3-17.3); White Blood Count 18.4 T/CUMM (4-12)
[2018-03-22] MEDS ORDERED: NALOXONE 0.4 MG/ML VIAL ONE ×2 (05:39→05:43)
[2018-03-22] MEDS ORDERED: NALOXONE 0.4 MG/ML VIAL IV ONE (05:43)
[2018-03-22] MEDS ORDERED: FLUMAZENIL 0.5 MG/5 ML VIAL IV ONE (05:45)
[2018-03-22] MEDS ORDERED: FLUMAZENIL 1 MG/10 ML VIAL IV ONE (05:45)
[2018-03-22] MEDS ORDERED: VECURONIUM 10 MG VIAL IV ONE (05:53)
[2018-03-22] MEDS ORDERED: ETOMIDATE 20 MG/10 ML VIAL IV ONE (05:54)
[2018-03-22] MEDS ORDERED: NOREPINEPHRINE 4 MG/4 ML VIAL IV ONE ×2 (05:54→21:15)
[2018-03-22 06:00] LABS: Albumin 2.8 G/DL (3.4-5.0); Bilirubin,Total 0.7 MG/DL (0.2-1.0); Calcium 7.9 MG/DL (8.5-10.1); Osmolality,Calculated 311.7 MOS/KG (273-304); Total Protein 6.3 G/DL (6.4-8.3)
[2018-03-22] MEDS ORDERED: PROPOFOL 1,000 MG/100 ML BOTTLE IV ONE (06:02)
[2018-03-22] MEDS ORDERED: NOREPINEPHRINE 8 MG in SODIUM CHLORIDE 0.9% 242 ML IV PRN (06:03)
[2018-03-22 06:05] LABS: Band Neutrophils 4 % (0-10); Eosinophils 1 % (0-10); Lymphocytes 11 % (20-55); Segmented Neutrophils 76 % (50-85); Total Cells Counted 100
[2018-03-22 06:07] LABS: Platelet Estimate Normal; Potassium 6.6 MMOL/L (3.5-5.1)
[2018-03-22] MEDS ORDERED: DOPamine 800 MG/250 ML PREMIX IV PRN (06:13)
[2018-03-22] MEDS ORDERED: CALCIUM GLUCONATE 1,000 MG/10 ML VIAL IV ONE (06:18)
[2018-03-22] MEDS ORDERED: PHENYLEPHRINE DRIP 40 MG/250 ML PREMIX IV PRN (06:23)
[2018-03-22] MEDS ORDERED: CALCIUM GLUCONATE 1,000 MG in SODIUM CHLORIDE 0.9% 100 ML IV ONE (06:30)
[2018-03-22] MEDS ORDERED: SODIUM POLYSTYRENE SULFATE 15 GM/60 ML BOTTLE PO ONE (06:30)
[2018-03-22] MEDS: LEVOTHYROXINE 150 MCG TABLET PO SCH (06:32)
[2018-03-22] MEDS ORDERED: LEVOFLOXACIN INJ 100 ML IV ONE (06:49)
[2018-03-22] MEDS: PROPOFOL 1,000 MG/100 ML BOTTLE IV SCH ×2 (06:56→22:52)
[2018-03-22] MEDS ORDERED: INSULIN REGULAR 100 UNIT/ML SUBCUT SCH (07:30)
[2018-03-22] MEDS ORDERED: METOPROLOL SUCCINATE XL 100 MG TABLET PO SCH (09:00)
[2018-03-22 09:37] LABS: ABG Oxygen Saturation 98.4 % (95-100); ABG PCO2 39.9 MM HG (35-48); ABG TCO2 5.2 MMOL/L (23-27)
[2018-03-22 09:44] LABS: ABG Base Excess < -30.0 MMOL/L (-2.5-2.5)
[2018-03-22 09:49] LABS: ABG PH 6.679 (7.35-7.45)
[2018-03-22] MEDS ORDERED: SODIUM BICARBONATE 50 MEQ/50 ML SYRINGE IV ONE ×7 (10:00→15:10)
[2018-03-22] MEDS ORDERED: ATROPINE 1 MG/10 ML SYRINGE ONE (10:14)
[2018-03-22] MEDS: SODIUM CHLORIDE 0.9% 1,000 ML IV SCH ×2 (10:30→20:25)
[2018-03-22] MEDS: DEXTROSE 10% 1,000 ML IV SCH ×2 (10:45→23:14)
[2018-03-22] MEDS: INSULIN REGULAR DRIP 100 ML IV PRN ×3 (10:50→20:37)
[2018-03-22] MEDS: DEXAMETHASONE 4 MG/1 ML VIAL IV SCH ×2 (10:50→17:18)
[2018-03-22] MEDS: ASPIRIN EC 81 MG TABLET PO SCH (10:51)
[2018-03-22] MEDS: ENOXAPARIN 30 MG/0.3 ML SYRINGE SUBCUT SCH (10:51)
[2018-03-22] MEDS: CLOPIDOGREL 75 MG TABLET PO SCH (10:51)
[2018-03-22 11:17] LABS: Hepatitis A Ab IgM Quant 0.16 Index; Hepatitis A Ab IgM Result Negative (Negative); Hepatitis B Core IgM Quant 0.11 Index; Hepatitis B Core IgM Result Negative (Negative); Hepatitis B Surface Ag Quant < 0.10 Index; Hepatitis B Surface Ag Result Negative (Negative); Hepatitis C Virus Ab Quant 0.02 Index; Hepatitis C Virus Ab Result Negative (Negative)
[2018-03-22 11:18] LABS: ABG Base Excess -28.8 MMOL/L (-2.5-2.5); ABG HCO3 5.4 MMOL/L (20-26); ABG PCO2 29.9 MM HG (35-48); ABG TCO2 5.1 MMOL/L (23-27)
[2018-03-22 11:20] LABS: ABG PH 6.821 (7.35-7.45)
[2018-03-22 12:21] LABS: Blood Urea Nitrogen 97 MG/DL (7-18); Calcium 6.4 MG/DL (8.5-10.1); Osmolality,Calculated 334.8 MOS/KG (273-304); Sodium 137 MMOL/L (136-145)
[2018-03-22 12:22] LABS: Glucose 682 MG/DL (74-106)
[2018-03-22 12:23] LABS: Potassium 7.2 MMOL/L (3.5-5.1)
[2018-03-22 12:24] LABS: Lactic Acid 14.9 MMOL/L (0.4-2.0)
[2018-03-22] MEDS ORDERED: FUROSEMIDE 40 MG/4 ML VIAL IV ONE (12:26)
[2018-03-22] MEDS: COLESEVELAM 625 MG TABLET PO SCH ×2 (12:35→19:59)
[2018-03-22] MEDS ORDERED: CALCIUM CHLORIDE 1,000 MG in SODIUM CHLORIDE 0.9% 100 ML IV ONE (13:30)
[2018-03-22] MEDS ORDERED: AMIODARONE 150 MG/3 ML VIAL ONE (13:42)
[2018-03-22 13:48] LABS: ABG Base Excess -24.9 MMOL/L (-2.5-2.5); ABG HCO3 7.3 MMOL/L (20-26); ABG Oxygen Saturation 99.6 % (95-100); ABG PCO2 27.5 MM HG (35-48); ABG TCO2 6.2 MMOL/L (23-27)
[2018-03-22 13:50] LABS: ABG PH 6.968 (7.35-7.45)
[2018-03-22] MEDS ORDERED: EPINEPHrine 1 MG/10 ML SYRINGE ONE (13:52)
[2018-03-22] MEDS ORDERED: CALCIUM CHLORIDE 1,000 MG/10 ML SYRINGE IV ONE (13:52)
[2018-03-22 14:42] LABS: ABG Base Excess -18.9 MMOL/L (-2.5-2.5); ABG HCO3 9.4 MMOL/L (20-26); ABG Oxygen Saturation 99.6 % (95-100); ABG PCO2 30.7 MM HG (35-48); ABG TCO2 10.4 MMOL/L (23-27)
[2018-03-22 14:45] LABS: ABG PH 7.105 (7.35-7.45)
[2018-03-22] MEDS ORDERED: EPINEPHrine 1 MG/10 ML SYRINGE IV ONE ×2 (14:45→15:05)
[2018-03-22 15:46] LABS: ABG Oxygen Saturation 99.3 % (95-100); ABG PCO2 35.8 MM HG (35-48); ABG PO2 545.6 MM HG (80-95); ABG TCO2 15.1 MMOL/L (23-27); Glucose Heart Surgery 280 MG/DL (74-106); Hemoglobin Heart Surgery 13.8 G/DL (12.0-16.0)
[2018-03-22 15:48] LABS: ABG PH 7.209 (7.35-7.45)
[2018-03-22 16:42] LABS: ABG Base Excess -17.8 MMOL/L (-2.5-2.5); ABG HCO3 10.2 MMOL/L (20-26); ABG Oxygen Saturation 99.4 % (95-100); ABG PCO2 31.6 MM HG (35-48); ABG TCO2 11.2 MMOL/L (23-27)
[2018-03-22 16:43] LABS: ABG PO2 554.9 MM HG (80-95)
[2018-03-22 16:46] LABS: ABG PH 7.127 (7.35-7.45)
[2018-03-22] MEDS: SODIUM BICARB INJ 150 MEQ in DEXTROSE 5% 850 ML IV SCH (17:29)
[2018-03-22 18:09] LABS: ABG Base Excess -18.8 MMOL/L (-2.5-2.5); ABG HCO3 10.8 MMOL/L (20-26); ABG Oxygen Saturation 99.4 % (95-100); ABG PCO2 26.6 MM HG (35-48); ABG TCO2 8.6 MMOL/L (23-27)
[2018-03-22 19:00] LABS: ABG HCO3 8.5 MMOL/L (20-26); ABG Oxygen Saturation 98.9 % (95-100); ABG PCO2 23.1 MM HG (35-48); ABG PO2 233.5 MM HG (80-95); ABG TCO2 9.2 MMOL/L (23-27)
[2018-03-22] MEDS: PHENYLEPHRINE INJ 160 MG in SODIUM CHLORIDE 0.9% 234 ML IV PRN (19:00)
[2018-03-22] MEDS: NOREPINEPHRINE 16 MG in SODIUM CHLORIDE 0.9% 234 ML IV PRN ×2 (19:00→21:51)
[2018-03-22 19:05] LABS: ABG PH 7.184 (7.35-7.45)
[2018-03-22 19:34] LABS: Lactic Acid > 15.0 MMOL/L (0.4-2.0)
[2018-03-22] MEDS: CEFEPIME 1,000 MG in SYRINGE 1 EACH IV SCH (20:53)
[2018-03-22] MEDS ORDERED: ACETAMINOPHEN 500 MG TABLET PO ONE (22:04)
[2018-03-22] MEDS ORDERED: ADENOSINE 6 MG/2 ML VIAL IV ONE (22:21)
[2018-03-22 22:22] LABS: ABG Base Excess -15.2 MMOL/L (-2.5-2.5); ABG Oxygen Saturation 99.8 % (95-100); ABG PCO2 22.6 MM HG (35-48); ABG PH 7.272 (7.35-7.45); ABG TCO2 9.4 MMOL/L (23-27)
[2018-03-22 23:00] LABS: Potassium 3.6 MMOL/L (3.5-5.1)
[2018-03-23] MEDS: DEXAMETHASONE 4 MG/1 ML VIAL IV SCH ×3 (00:03→17:40)
[2018-03-23] MEDS: MAGNESIUM SULF RIDER 2 GM in PREMIX 1 EACH IV PRN ×2 (00:32→02:17)
[2018-03-23] MEDS: PHENYLEPHRINE INJ 160 MG in SODIUM CHLORIDE 0.9% 234 ML IV PRN ×2 (00:43→09:50)
[2018-03-23] MEDS: metroNIDAZOLE INJ 500 MG in PREMIX 1 EACH IV SCH ×3 (01:24→18:36)
[2018-03-23] MEDS: SODIUM BICARB INJ 150 MEQ in DEXTROSE 5% 850 ML IV SCH ×2 (04:15→16:38)
[2018-03-23 04:32] LABS: ABG Base Excess -8.4 MMOL/L (-2.5-2.5); ABG HCO3 17.7 MMOL/L (20-26); ABG Oxygen Saturation 99.6 % (95-100); ABG PCO2 22.1 MM HG (35-48); ABG PH 7.423 (7.35-7.45); ABG TCO2 12.8 MMOL/L (23-27)
[2018-03-23 04:36] LABS: Basophils # 0.1 10*3/uL (0.0-0.2); Basophils % 0.2 % (0.0-0.8); Hematocrit 31.7 VOL% (35.7-47.0); Hemoglobin 11.6 GM/DL (12.0-16.0); Immature Granulocytes % 1.4 %; Immature Granulocytes Absolute 0.41 #; Lymphocytes # 1.6 10*3/uL (1.4-4.0); Lymphocytes % 5.2 % (21.3-54.2); Mean Corpuscular HGB Conc 36.6 GM/DL (32-36); Mean Corpuscular Hemoglobin 32 PG (27-34); Mean Corpuscular Volume 86.8 FL (87-102); Mean Platelet Volume 11.3 FL (9.6-12.0); Monocytes # 2.9 10*3/uL (0.11-0.8); Monocytes % 9.8 % (1.7-12.7); NRBC # 0.17 10*3/uL; Neutrophils # 24.8 10*3/uL (1.4-7.4); Neutrophils % 83.4 % (38.7-73.9); Platelet Count 145 T/CUMM (130-400); Red Blood Count 3.65 MC/CUMM (3.8-5.5); Red Cell Distribution Width 12.6 % (9.3-17.3); White Blood Count 29.7 T/CUMM (4-12)
[2018-03-23 04:53] LABS: Lactic Acid 13.4 MMOL/L (0.4-2.0)
[2018-03-23 05:06] LABS: Band Neutrophils 3 % (0-10); Hypochromasia Slight; Lymphocytes 6 % (20-55); Ovalocytes Slight; Platelet Estimate Normal; Segmented Neutrophils 78 % (50-85); Total Cells Counted 100
[2018-03-23 05:07] LABS: Blood Urea Nitrogen 62 MG/DL (7-18); Burr Cells Slight; Calcium 7.1 MG/DL (8.5-10.1); Glucose 238 MG/DL (74-106); Potassium 3.8 MMOL/L (3.5-5.1); Sodium 143 MMOL/L (136-145)
[2018-03-23] MEDS: LEVOTHYROXINE 150 MCG TABLET PO SCH (05:55)
[2018-03-23] MEDS: ASPIRIN EC 81 MG TABLET PO SCH (09:22)
[2018-03-23] MEDS: CLOPIDOGREL 75 MG TABLET PO SCH (09:22)
[2018-03-23] MEDS: PANTOPRAZOLE 40 MG VIAL IV SCH ×2 (09:23→22:03)
[2018-03-23] MEDS: ENOXAPARIN 30 MG/0.3 ML SYRINGE SUBCUT SCH (09:24)
[2018-03-23] MEDS: COLESEVELAM 625 MG TABLET PO SCH ×2 (09:43→18:31)
[2018-03-23] MEDS: PROPOFOL 1,000 MG/100 ML BOTTLE IV SCH ×2 (10:15→19:17)
[2018-03-23] MEDS ORDERED: INSULIN REGULAR DRIP 100 ML IV PRN (10:30)
[2018-03-23] MEDS ORDERED: SODIUM CHLORIDE 0.9% 1,000 ML IV PRN (11:58)
[2018-03-23 13:04] LABS: CKMB % 3.4 %
[2018-03-23 13:05] LABS: Troponin I Only 1.79 NG/ML (0.00-0.045)
[2018-03-23 15:12] LABS: CKMB % 3.4 %
[2018-03-23 15:18] LABS: Troponin I Only 1.47 NG/ML (0.00-0.045)
[2018-03-23] MEDS ORDERED: AMINO ACIDS IV SCH (17:00)
[2018-03-23] MEDS ORDERED: [UNRECOGNIZED DRUG - OTHER] IV SCH (17:00)
[2018-03-23] MEDS ORDERED: DEXTROSE 10% 1,000 ML IV PRN (17:00)
[2018-03-23] MEDS ORDERED: TRACE ELEMENTS IV SCH ×2 (17:00→19:59)
[2018-03-23] MEDS ORDERED: MULTIVITAMIN IV SCH ×2 (17:00→19:59)
[2018-03-23 18:26] LABS: Osmolality,Calculated 290.4 MOS/KG (273-304)
[2018-03-23] MEDS: POTASSIUM CHLORIDE 20 MEQ/15 ML UDCUP PER TUBE SCH ×2 (19:35→22:03)
[2018-03-23 19:58] LABS: ABG HCO3 27.1 MMOL/L (20-26); ABG Oxygen Saturation 99.8 % (95-100); ABG PCO2 28.6 MM HG (35-48); ABG PH 7.542 (7.35-7.45); ABG TCO2 21.1 MMOL/L (23-27)
[2018-03-23] MEDS ORDERED: [UNRECOGNIZED DRUG - OTHER] IV SCH (19:59)
[2018-03-23] MEDS ORDERED: INSULIN REGULAR IV SCH (19:59)
[2018-03-23 21:10] LABS: ABG Oxygen Saturation 99.7 % (95-100); ABG PCO2 34.6 MM HG (35-48); ABG PH 7.499 (7.35-7.45); ABG TCO2 23.4 MMOL/L (23-27)
[2018-03-23] MEDS: INSULIN REGULAR 100 UNIT/ML SUBCUT SCH (21:18)
[2018-03-23] MEDS: CEFEPIME 1,000 MG in SYRINGE 1 EACH IV SCH (22:03)
[2018-03-23 22:25] LABS: ABG Base Excess 5.3 MMOL/L (-2.5-2.5); ABG HCO3 29.2 MMOL/L (20-26); ABG Oxygen Saturation 99.8 % (95-100); ABG PCO2 36.7 MM HG (35-48); ABG PH 7.498 (7.35-7.45); ABG TCO2 24.7 MMOL/L (23-27)
[2018-03-24] MEDS: INSULIN REGULAR 100 UNIT/ML SUBCUT SCH ×6 (00:06→21:29)
[2018-03-24] MEDS: DEXAMETHASONE 4 MG/1 ML VIAL IV SCH (00:06)
[2018-03-24] MEDS: PROPOFOL 1,000 MG/100 ML BOTTLE IV SCH ×5 (01:26→18:16)
[2018-03-24] MEDS: metroNIDAZOLE INJ 500 MG in PREMIX 1 EACH IV SCH ×3 (02:37→18:10)
[2018-03-24] MEDS: POTASSIUM CHLORIDE 20 MEQ/15 ML UDCUP PER TUBE SCH ×2 (02:37→04:04)
[2018-03-24 03:09] LABS: Basophils % 0.1 % (0.0-0.8); Hematocrit 34.2 VOL% (35.7-47.0); Hemoglobin 12.5 GM/DL (12.0-16.0); Immature Granulocytes % 1.1 %; Lymphocytes # 0.8 10*3/uL (1.4-4.0); Lymphocytes % 3.1 % (21.3-54.2); Mean Corpuscular HGB Conc 36.5 GM/DL (32-36); Mean Corpuscular Hemoglobin 31 PG (27-34); Mean Corpuscular Volume 85.7 FL (87-102); Mean Platelet Volume 11.8 FL (9.6-12.0); Monocytes # 1.7 10*3/uL (0.11-0.8); Monocytes % 6.6 % (1.7-12.7); Neutrophils # 22.6 10*3/uL (1.4-7.4); Neutrophils % 89.1 % (38.7-73.9); Platelet Count 80 T/CUMM (130-400); Red Blood Count 3.99 MC/CUMM (3.8-5.5); Red Cell Distribution Width 13.3 % (9.3-17.3); White Blood Count 25.3 T/CUMM (4-12)
[2018-03-24 03:10] LABS: Immature Granulocytes Absolute 0.28 #; NRBC # 0.24 10*3/uL
[2018-03-24 03:14] LABS: ABG Base Excess 7.4 MMOL/L (-2.5-2.5); ABG HCO3 30.8 MMOL/L (20-26); ABG Oxygen Saturation 98.7 % (95-100); ABG PCO2 38.7 MM HG (35-48); ABG PH 7.518 (7.35-7.45); ABG PO2 185.4 MM HG (80-95); ABG TCO2 31.9 MMOL/L (23-27)
[2018-03-24 03:16] LABS: INR 1.3; PT Patient Result 13.8 SECS; Partial Thromboplastin Time 29.5 SECS (0-40)
[2018-03-24 03:34] LABS: Prealbumin 14.5 MG/DL (20-40)
[2018-03-24 03:35] LABS: Alanine Aminotransferase 184 U/L (13-56); Albumin 2.3 G/DL (3.4-5.0); Alkaline Phosphatase 120 U/L (45-117); Aspartate Amino Transferase 374 U/L (0-37); Blood Urea Nitrogen 37 MG/DL (7-18); Calcium 6.4 MG/DL (8.5-10.1); Glucose 412 MG/DL (74-106); Osmolality,Calculated 302.5 MOS/KG (273-304); Potassium 3.5 MMOL/L (3.5-5.1); Sodium 139 MMOL/L (136-145); Total Protein 4.9 G/DL (6.4-8.3)
[2018-03-24 03:37] LABS: Troponin I Only 0.789 NG/ML (0.00-0.045)
[2018-03-24 03:38] LABS: Lactic Acid 2.8 MMOL/L (0.4-2.0)
[2018-03-24 04:27] LABS: Band Neutrophils 4 % (0-10); Lymphocytes 2 % (20-55); Nucleated Red Blood Cells 3 (0-5); Platelet Estimate Decreased; Segmented Neutrophils 88 % (50-85); Total Cells Counted 100
[2018-03-24 04:28] LABS: Hypochromasia 1+; Ovalocytes Slight
[2018-03-24] MEDS: PHENYLEPHRINE INJ 160 MG in SODIUM CHLORIDE 0.9% 234 ML IV PRN (04:47)
[2018-03-24] MEDS: LEVOTHYROXINE 150 MCG TABLET PO SCH (05:45)
[2018-03-24] MEDS: LEVOFLOXACIN INJ 250 MG in PREMIX 1 EACH IV SCH (06:24)
[2018-03-24] MEDS: SODIUM BICARB INJ 150 MEQ in DEXTROSE 5% 850 ML IV SCH (06:30)
[2018-03-24] MEDS: COLESEVELAM 625 MG TABLET PO SCH ×2 (09:05→17:27)
[2018-03-24] MEDS: PANTOPRAZOLE 40 MG VIAL IV SCH ×2 (09:23→21:30)
[2018-03-24] MEDS: ASPIRIN EC 81 MG TABLET PO SCH (09:24)
[2018-03-24] MEDS ORDERED: AMIODARONE INJ 450 MG in DEXTROSE 5% 241 ML IV SCH (15:00)
[2018-03-24] MEDS ORDERED: MAGNESIUM SULF RIDER 4 GM in PREMIX 1 EACH IV PRN (15:55)
[2018-03-24 16:38] LABS: Osmolality,Calculated 288.4 MOS/KG (273-304)
[2018-03-24 16:39] LABS: Potassium 2.5 MMOL/L (3.5-5.1)
[2018-03-24] MEDS: [UNRECOGNIZED DRUG - OTHER] IV SCH (17:27)
[2018-03-24] MEDS: POTASSIUM CHLORIDE RIDER 20 MEQ in PREMIX 1 EACH IV PRN ×3 (17:27→21:30)
[2018-03-24] MEDS: MAGNESIUM SULF RIDER 2 GM in PREMIX 1 EACH IV PRN (17:27)
[2018-03-24] MEDS: TRACE ELEMENTS IV SCH (17:27)
[2018-03-24] MEDS: MULTIVITAMIN IV SCH (17:27)
[2018-03-24] MEDS: INSULIN REGULAR IV SCH (17:27)
[2018-03-24] MEDS: AMIODARONE INJ 450 MG in DEXTROSE 5% 241 ML IV SCH (21:31)
[2018-03-25] MEDS: INSULIN REGULAR 100 UNIT/ML SUBCUT SCH ×6 (00:08→21:02)
[2018-03-25] MEDS: PROPOFOL 1,000 MG/100 ML BOTTLE IV SCH ×2 (02:51→11:37)
[2018-03-25] MEDS: metroNIDAZOLE INJ 500 MG in PREMIX 1 EACH IV SCH ×3 (02:51→18:20)
[2018-03-25 03:38] LABS: ABG Base Excess 8.2 MMOL/L (-2.5-2.5); ABG Oxygen Saturation 99.7 % (95-100); ABG PCO2 39.4 MM HG (35-48); ABG PH 7.516 (7.35-7.45)
[2018-03-25 03:53] LABS: Basophils % 0.1 % (0.0-0.8); Immature Granulocytes % 3.6 %; Immature Granulocytes Absolute 0.73 #; Lymphocytes # 1.7 10*3/uL (1.4-4.0); Lymphocytes % 8.4 % (21.3-54.2); Mean Corpuscular HGB Conc 36.4 GM/DL (32-36); Mean Corpuscular Hemoglobin 31 PG (27-34); Mean Corpuscular Volume 86.2 FL (87-102); Mean Platelet Volume 12.5 FL (9.6-12.0); Monocytes # 1.3 10*3/uL (0.11-0.8); Monocytes % 6.5 % (1.7-12.7); NRBC # 0.09 10*3/uL; Neutrophils # 16.7 10*3/uL (1.4-7.4); Neutrophils % 81.4 % (38.7-73.9); Platelet Count 48 T/CUMM (130-400); Red Blood Count 3.83 MC/CUMM (3.8-5.5); Red Cell Distribution Width 13.4 % (9.3-17.3); White Blood Count 20.5 T/CUMM (4-12)
[2018-03-25 03:55] LABS: INR 1.1; PT Patient Result 11.9 SECS
[2018-03-25 04:17] LABS: Albumin 2.2 G/DL (3.4-5.0); Bilirubin,Total 1.1 MG/DL (0.2-1.0); Potassium 2.6 MMOL/L (3.5-5.1); Total Protein 4.9 G/DL (6.4-8.3)
[2018-03-25] MEDS: POTASSIUM CHLORIDE RIDER 20 MEQ in PREMIX 1 EACH IV PRN ×6 (04:56→23:16)
[2018-03-25 05:01] LABS: Band Neutrophils 3 % (0-10); Lymphocytes 12 % (20-55); Nucleated Red Blood Cells 2 (0-5); Platelet Estimate Decreased; Segmented Neutrophils 81 % (50-85); Total Cells Counted 100
[2018-03-25] MEDS: MAGNESIUM SULF RIDER 2 GM in PREMIX 1 EACH IV PRN ×2 (05:27→05:44)
[2018-03-25] MEDS: PHENYLEPHRINE INJ 160 MG in SODIUM CHLORIDE 0.9% 234 ML IV PRN (05:34)
[2018-03-25] MEDS: LEVOTHYROXINE 150 MCG TABLET PO SCH (06:18)
[2018-03-25] MEDS: POTASSIUM CHLORIDE RIDER 10 MEQ in PREMIX 1 EACH IV PRN ×2 (06:18→15:15)
[2018-03-25] MEDS: COLESEVELAM 625 MG TABLET PO SCH ×2 (07:20→16:36)
[2018-03-25] MEDS: PANTOPRAZOLE 40 MG VIAL IV SCH ×2 (09:27→21:07)
[2018-03-25] MEDS: ASPIRIN EC 81 MG TABLET PO SCH (09:27)
[2018-03-25] MEDS: AMIODARONE INJ 450 MG in DEXTROSE 5% 241 ML IV SCH (11:37)
[2018-03-25 14:42] LABS: S. Pneumo Serotype 1 0.6 mcg/mL (>=2.3); S. Pneumo Serotype 10A 0.6 mcg/mL (>=2.9); S. Pneumo Serotype 11A 0.3 mcg/mL (>=2.4); S. Pneumo Serotype 12F < 0.1 mcg/mL (>=0.6); S. Pneumo Serotype 14 0.8 mcg/mL (>=7.0); S. Pneumo Serotype 15B 0.8 mcg/mL (>=3.3); S. Pneumo Serotype 18C 0.7 mcg/mL (>=3.3); S. Pneumo Serotype 19A 0.5 mcg/mL (>=17.1); S. Pneumo Serotype 19F 0.8 mcg/mL (>=15.0); S. Pneumo Serotype 2 0.1 mcg/mL (>=1.0); S. Pneumo Serotype 20 0.2 mcg/mL (>=1.3); S. Pneumo Serotype 22F 2.6 mcg/mL (>=7.2); S. Pneumo Serotype 23F 2.8 mcg/mL (>=8.0); S. Pneumo Serotype 3 1.4 mcg/mL (>=1.8); S. Pneumo Serotype 33F 0.5 mcg/mL (>=1.7); S. Pneumo Serotype 6B 0.5 mcg/mL (>=4.7); S. Pneumo Serotype 7F 0.9 mcg/mL (>=3.2); S. Pneumo Serotype 8 0.3 mcg/mL (>=2.9); S. Pneumo Serotype 9N 0.4 mcg/mL (>=9.2); S. Pneumo Serotype 9V 4.9 mcg/mL (>=2.6)
[2018-03-25] MEDS: [UNRECOGNIZED DRUG - OTHER] IV SCH (16:37)
[2018-03-25] MEDS: MULTIVITAMIN IV SCH (16:37)
[2018-03-25] MEDS: INSULIN REGULAR IV SCH (16:37)
[2018-03-25] MEDS: TRACE ELEMENTS IV SCH (16:37)
[2018-03-26] MEDS: INSULIN REGULAR 100 UNIT/ML SUBCUT SCH ×8 (00:22→23:55)
[2018-03-26] MEDS: AMIODARONE INJ 450 MG in DEXTROSE 5% 241 ML IV SCH (03:40)
[2018-03-26] MEDS: PROPOFOL 1,000 MG/100 ML BOTTLE IV SCH ×3 (03:42→15:32)
[2018-03-26] MEDS: metroNIDAZOLE INJ 500 MG in PREMIX 1 EACH IV SCH ×2 (03:43→10:32)
[2018-03-26 04:00] LABS: ABG Base Excess 2.5 MMOL/L (-2.5-2.5); ABG HCO3 25.3 MMOL/L (20-26); ABG Oxygen Saturation 98.6 % (95-100); ABG PCO2 33.4 MM HG (35-48); ABG PH 7.498 (7.35-7.45); ABG PO2 145.6 MM HG (80-95); ABG TCO2 26.4 MMOL/L (23-27)
[2018-03-26 04:22] LABS: Basophils % 0.2 % (0.0-0.8); Eosinophils # 0.1 10*3/uL (0.0-0.87); Eosinophils % 0.3 % (0.00-10.9); Hematocrit 33.3 VOL% (35.7-47.0); Hemoglobin 11.5 GM/DL (12.0-16.0); Immature Granulocytes % 0.7 %; Immature Granulocytes Absolute 0.18 #; Lymphocytes # 2.3 10*3/uL (1.4-4.0); Lymphocytes % 9.2 % (21.3-54.2); Mean Corpuscular HGB Conc 34.5 GM/DL (32-36); Mean Corpuscular Hemoglobin 32 PG (27-34); Mean Corpuscular Volume 91.2 FL (87-102); Mean Platelet Volume 13.1 FL (9.6-12.0); Monocytes # 1.2 10*3/uL (0.11-0.8); Monocytes % 4.6 % (1.7-12.7); Neutrophils # 21.5 10*3/uL (1.4-7.4); Red Blood Count 3.65 MC/CUMM (3.8-5.5); Red Cell Distribution Width 13.6 % (9.3-17.3); White Blood Count 25.2 T/CUMM (4-12)
[2018-03-26 04:23] LABS: Platelet Count 39 T/CUMM (130-400)
[2018-03-26 04:47] LABS: Albumin 2.1 G/DL (3.4-5.0); Bilirubin,Total 0.8 MG/DL (0.2-1.0); Osmolality,Calculated 296.3 MOS/KG (273-304); Potassium 3.4 MMOL/L (3.5-5.1); Total Protein 4.7 G/DL (6.4-8.3)
[2018-03-26 04:59] LABS: Band Neutrophils 1 % (0-10); Eosinophils 1 % (0-10); Hypochromasia 1+; Lymphocytes 6 % (20-55); Ovalocytes Slight; Platelet Estimate Decreased; Segmented Neutrophils 88 % (50-85); Total Cells Counted 100
[2018-03-26] MEDS: LEVOTHYROXINE 150 MCG TABLET PO SCH (05:35)
[2018-03-26] MEDS: POTASSIUM CHLORIDE RIDER 20 MEQ in PREMIX 1 EACH IV PRN (05:35)
[2018-03-26] MEDS: MAGNESIUM SULF RIDER 2 GM in PREMIX 1 EACH IV PRN (05:35)
[2018-03-26] MEDS: POTASSIUM CHLORIDE RIDER 10 MEQ in PREMIX 1 EACH IV PRN (07:39)
[2018-03-26] MEDS ORDERED: FAMOTIDINE 20 MG/2 ML VIAL IV SCH (08:30)
[2018-03-26] MEDS: ASPIRIN EC 81 MG TABLET PO SCH (09:03)
[2018-03-26] MEDS: AMIODARONE 200 MG TABLET PO SCH ×2 (09:03→20:34)
[2018-03-26] MEDS: COLESEVELAM 625 MG TABLET PO SCH ×2 (09:03→17:03)
[2018-03-26] MEDS: LEVOFLOXACIN INJ 250 MG in PREMIX 1 EACH IV SCH ×2 (09:50→10:33)
[2018-03-26] MEDS ORDERED: METOPROLOL TARTRATE 5 MG/5 ML VIAL IV ONE (12:59)
[2018-03-26] MEDS: MINERAL OIL/PETROLATUM OPH OINT 3.5 GM TUBE BOTH EYES SCH (20:36)
[2018-03-27] MEDS: MORPHINE 4 MG/1 ML VIAL IV PRN ×5 (00:45→23:59)
[2018-03-27 03:13] LABS: ABG Oxygen Saturation 98.7 % (95-100); ABG PCO2 38.3 MM HG (35-48); ABG PH 7.449 (7.35-7.45); ABG PO2 183.8 MM HG (80-95); ABG TCO2 27.1 MMOL/L (23-27)
[2018-03-27] MEDS: PROPOFOL 1,000 MG/100 ML BOTTLE IV SCH ×3 (03:14→16:36)
[2018-03-27 03:41] LABS: Basophils # 0.1 10*3/uL (0.0-0.2); Basophils % 0.2 % (0.0-0.8); Eosinophils # 0.2 10*3/uL (0.0-0.87); Eosinophils % 0.8 % (0.00-10.9); Hematocrit 30.5 VOL% (35.7-47.0); Hemoglobin 10.2 GM/DL (12.0-16.0); Immature Granulocytes % 1.4 %; Immature Granulocytes Absolute 0.36 #; Lymphocytes # 1.7 10*3/uL (1.4-4.0); Lymphocytes % 6.8 % (21.3-54.2); Mean Corpuscular HGB Conc 33.4 GM/DL (32-36); Mean Corpuscular Hemoglobin 32 PG (27-34); Mean Corpuscular Volume 94.1 FL (87-102); Mean Platelet Volume 13.7 FL (9.6-12.0); Monocytes # 2.4 10*3/uL (0.11-0.8); Monocytes % 9.6 % (1.7-12.7); Neutrophils # 20.5 10*3/uL (1.4-7.4); Neutrophils % 81.2 % (38.7-73.9); Red Blood Count 3.24 MC/CUMM (3.8-5.5); White Blood Count 25.2 T/CUMM (4-12)
[2018-03-27 03:42] LABS: Platelet Count 50 T/CUMM (130-400)
[2018-03-27 04:08] LABS: Albumin 1.8 G/DL (3.4-5.0); Bilirubin,Total 0.7 MG/DL (0.2-1.0); Calcium 7.3 MG/DL (8.5-10.1); Total Protein 4.6 G/DL (6.4-8.3)
[2018-03-27] MEDS: INSULIN REGULAR 100 UNIT/ML SUBCUT SCH ×5 (04:43→18:22)
[2018-03-27 05:06] LABS: Platelet Estimate Decreased
[2018-03-27 05:07] LABS: Hypochromasia Slight
[2018-03-27] MEDS: LEVOTHYROXINE 150 MCG TABLET PO SCH (06:03)
[2018-03-27] MEDS: MAGNESIUM SULF RIDER 2 GM in PREMIX 1 EACH IV PRN (06:03)
[2018-03-27] MEDS: AMIODARONE 200 MG TABLET PO SCH ×2 (09:10→20:06)
[2018-03-27] MEDS: FAMOTIDINE 20 MG/2 ML VIAL IV SCH (09:10)
[2018-03-27] MEDS: COLESEVELAM 625 MG TABLET PO SCH ×2 (09:10→16:23)
[2018-03-27] MEDS: LEVOFLOXACIN INJ 250 MG in PREMIX 1 EACH IV SCH (09:13)
[2018-03-27] MEDS: MINERAL OIL/PETROLATUM OPH OINT 3.5 GM TUBE BOTH EYES SCH (20:06)
[2018-03-28] MEDS: INSULIN REGULAR 100 UNIT/ML SUBCUT SCH ×5 (00:37→23:58)
[2018-03-28 04:31] LABS: ABG Base Excess 2.1 MMOL/L (-2.5-2.5); ABG HCO3 26.3 MMOL/L (20-26); ABG Oxygen Saturation 99.1 % (95-100); ABG PCO2 40.7 MM HG (35-48); ABG PH 7.424 (7.35-7.45); ABG TCO2 24.1 MMOL/L (23-27)
[2018-03-28 05:02] LABS: Basophils # 0.1 10*3/uL (0.0-0.2); Basophils % 0.3 % (0.0-0.8); Eosinophils # 0.4 10*3/uL (0.0-0.87); Eosinophils % 2.5 % (0.00-10.9); Hematocrit 31.2 VOL% (35.7-47.0); Hemoglobin 10.1 GM/DL (12.0-16.0); Immature Granulocytes % 2.1 %; Immature Granulocytes Absolute 0.38 #; Lymphocytes # 1.5 10*3/uL (1.4-4.0); Lymphocytes % 8.7 % (21.3-54.2); Mean Corpuscular HGB Conc 32.4 GM/DL (32-36); Mean Corpuscular Hemoglobin 31 PG (27-34); Mean Platelet Volume 12.5 FL (9.6-12.0); Monocytes # 2.3 10*3/uL (0.11-0.8); Monocytes % 12.9 % (1.7-12.7); Neutrophils # 13.1 10*3/uL (1.4-7.4); Neutrophils % 73.5 % (38.7-73.9); Platelet Count 94 T/CUMM (130-400); Red Blood Count 3.25 MC/CUMM (3.8-5.5); Red Cell Distribution Width 13.6 % (9.3-17.3); White Blood Count 17.8 T/CUMM (4-12)
[2018-03-28 05:33] LABS: Albumin 1.7 G/DL (3.4-5.0); Bilirubin,Total 0.6 MG/DL (0.2-1.0); Calcium 7.5 MG/DL (8.5-10.1); Osmolality,Calculated 306.4 MOS/KG (273-304); Total Protein 4.7 G/DL (6.4-8.3)
[2018-03-28 05:44] LABS: Hypochromasia Slight; Platelet Estimate Decreased
[2018-03-28] MEDS: LEVOTHYROXINE 150 MCG TABLET PO SCH (06:07)
[2018-03-28] MEDS: PROPOFOL 1,000 MG/100 ML BOTTLE IV SCH (07:35)
[2018-03-28 08:15] LABS: ABG Base Excess 2.7 MMOL/L (-2.5-2.5); ABG HCO3 26.8 MMOL/L (20-26); ABG Oxygen Saturation 97.6 % (95-100); ABG PCO2 39.9 MM HG (35-48); ABG PH 7.439 (7.35-7.45); ABG TCO2 24.3 MMOL/L (23-27)
[2018-03-28] MEDS: INSULIN GLARGINE 100 UNIT/ML SUBCUT SCH (09:03)
[2018-03-28] MEDS: COLESEVELAM 625 MG TABLET PO SCH ×2 (09:04→17:17)
[2018-03-28] MEDS: FAMOTIDINE 20 MG/2 ML VIAL IV SCH (09:04)
[2018-03-28] MEDS: AMIODARONE 200 MG TABLET PO SCH ×2 (09:06→21:13)
[2018-03-28] MEDS: LEVOFLOXACIN INJ 250 MG in PREMIX 1 EACH IV SCH (09:06)
[2018-03-28] MEDS ORDERED: DILTIAZEM 50 MG/10 ML VIAL IV ONE (10:32)
[2018-03-28] MEDS ORDERED: AMIODARONE INJ 150 MG in DEXTROSE 5% 100 ML IV ONE ×2 (10:32→11:58)
[2018-03-28 10:38] LABS: ABG Oxygen Saturation 96.8 % (95-100); ABG PCO2 41.8 MM HG (35-48); ABG PH 7.394 (7.35-7.45); ABG PO2 89.6 MM HG (80-95); ABG TCO2 26.2 MMOL/L (23-27)
[2018-03-28] MEDS: DILTIAZEM INJ 100 MG in SODIUM CHLORIDE 0.9% 100 ML IV SCH ×3 (10:45→23:22)
[2018-03-28] MEDS: MORPHINE 4 MG/1 ML VIAL IV PRN ×2 (11:50→23:58)
[2018-03-28] MEDS ORDERED: MIDAZOLAM 2 MG/2 ML VIAL ONE (12:08)
[2018-03-28] MEDS ORDERED: MIDAZOLAM 2 MG/2 ML VIAL IV ONE (12:10)
[2018-03-28] MEDS ORDERED: DIGOXIN 0.5 MG/2 ML AMP IV ONE (12:19)
[2018-03-28 12:36] LABS: ABG Base Excess -2.2 MMOL/L (-2.5-2.5); ABG Oxygen Saturation 92.9 % (95-100); ABG PH 7.291 (7.35-7.45); ABG PO2 71.9 MM HG (80-95); ABG TCO2 26.6 MMOL/L (23-27)
[2018-03-28 15:20] LABS: ABG Base Excess 0.9 MMOL/L (-2.5-2.5); ABG HCO3 25.1 MMOL/L (20-26); ABG PCO2 45.7 MM HG (35-48); ABG PH 7.372 (7.35-7.45); ABG PO2 73.2 MM HG (80-95); ABG TCO2 23.7 MMOL/L (23-27)
[2018-03-28] MEDS ORDERED: RACEPINEPHRINE 0.5 ML NEB RESP TX ONE (18:03)
[2018-03-28] MEDS: methylPREDNISolone SOD SUC 40 MG/1 ML VIAL IV SCH (18:36)
[2018-03-28 19:25] LABS: ABG Base Excess 4.1 MMOL/L (-2.5-2.5); ABG HCO3 28.1 MMOL/L (20-26); ABG Oxygen Saturation 99.1 % (95-100); ABG PCO2 45.4 MM HG (35-48); ABG PH 7.418 (7.35-7.45); ABG TCO2 26.1 MMOL/L (23-27)
[2018-03-28] MEDS: MINERAL OIL/PETROLATUM OPH OINT 3.5 GM TUBE BOTH EYES SCH (21:14)
[2018-03-29] MEDS: methylPREDNISolone SOD SUC 40 MG/1 ML VIAL IV SCH ×3 (04:09→18:16)
[2018-03-29 04:25] LABS: ABG Base Excess 5.1 MMOL/L (-2.5-2.5); ABG Oxygen Saturation 99.6 % (95-100); ABG PCO2 42.2 MM HG (35-48); ABG PH 7.454 (7.35-7.45); ABG TCO2 26.2 MMOL/L (23-27)
[2018-03-29 04:35] LABS: Basophils # 0.1 10*3/uL (0.0-0.2); Basophils % 0.4 % (0.0-0.8); Hematocrit 34.5 VOL% (35.7-47.0); Hemoglobin 11.7 GM/DL (12.0-16.0); Immature Granulocytes % 4.5 %; Immature Granulocytes Absolute 0.68 #; Lymphocytes # 0.7 10*3/uL (1.4-4.0); Lymphocytes % 4.8 % (21.3-54.2); Mean Corpuscular HGB Conc 33.9 GM/DL (32-36); Mean Corpuscular Hemoglobin 31 PG (27-34); Mean Corpuscular Volume 91.8 FL (87-102); Mean Platelet Volume 12.4 FL (9.6-12.0); Monocytes # 0.8 10*3/uL (0.11-0.8); Monocytes % 5.1 % (1.7-12.7); Neutrophils # 12.8 10*3/uL (1.4-7.4); Neutrophils % 85.2 % (38.7-73.9); Platelet Count 161 T/CUMM (130-400); Red Blood Count 3.76 MC/CUMM (3.8-5.5); Red Cell Distribution Width 13.2 % (9.3-17.3)
[2018-03-29 04:59] LABS: Calcium 7.9 MG/DL (8.5-10.1); Potassium 4.1 MMOL/L (3.5-5.1); Total Protein 5.8 G/DL (6.4-8.3)
[2018-03-29 05:14] LABS: Band Neutrophils 2 % (0-10); Hypochromasia 1+; Lymphocytes 8 % (20-55); Ovalocytes Slight; Platelet Estimate Normal; Segmented Neutrophils 81 % (50-85); Total Cells Counted 100
[2018-03-29 05:34] LABS: Prealbumin 10.9 MG/DL (20-40)
[2018-03-29] MEDS: INSULIN REGULAR 100 UNIT/ML SUBCUT SCH ×3 (06:42→18:16)
[2018-03-29] MEDS: LEVOTHYROXINE 150 MCG TABLET PO SCH (06:43)
[2018-03-29 08:09] LABS: ABG Base Excess 4.7 MMOL/L (-2.5-2.5); ABG Oxygen Saturation 95.8 % (95-100); ABG PCO2 37.3 MM HG (35-48); ABG PH 7.494 (7.35-7.45); ABG PO2 74.7 MM HG (80-95); ABG TCO2 29.2 MMOL/L (23-27)
[2018-03-29] MEDS: PROPOFOL 1,000 MG/100 ML BOTTLE IV SCH (08:32)
[2018-03-29] MEDS: AMIODARONE 200 MG TABLET PO SCH ×2 (08:46→21:13)
[2018-03-29] MEDS: COLESEVELAM 625 MG TABLET PO SCH ×2 (08:48→17:14)
[2018-03-29] MEDS: FAMOTIDINE 20 MG/2 ML VIAL IV SCH (08:48)
[2018-03-29] MEDS: DILTIAZEM INJ 100 MG in SODIUM CHLORIDE 0.9% 100 ML IV SCH ×2 (08:48→17:13)
[2018-03-29] MEDS: MAGNESIUM SULF RIDER 2 GM in PREMIX 1 EACH IV PRN (08:55)
[2018-03-29] MEDS ORDERED: METOPROLOL TARTRATE 5 MG/5 ML VIAL IV ONE ×2 (09:10→09:11)
[2018-03-29] MEDS: METOPROLOL TARTRATE 25 MG TABLET PO SCH ×2 (09:49→21:13)
[2018-03-29] MEDS: INSULIN GLARGINE 100 UNIT/ML SUBCUT SCH (09:55)
[2018-03-29] MEDS ORDERED: LEVOFLOXACIN INJ 500 MG in PREMIX 1 EACH IV SCH (10:00)
[2018-03-29] MEDS: MORPHINE 4 MG/1 ML VIAL IV PRN (14:20)
[2018-03-29] MEDS: ZINC OXIDE PASTE 113 GM TUBE TOP SCH ×2 (17:13→21:15)
[2018-03-29] MEDS ORDERED: FAMOTIDINE 20 MG/2 ML VIAL IV SCH (21:00)
[2018-03-29] MEDS: GABAPENTIN 600 MG TABLET PO SCH (21:12)
[2018-03-29] MEDS: FAMOTIDINE 20 MG TABLET PO SCH (21:14)
[2018-03-29] MEDS: GLIMEPIRIDE 4 MG TABLET PO SCH (22:34)
[2018-03-29] MEDS: MINERAL OIL/PETROLATUM OPH OINT 3.5 GM TUBE BOTH EYES SCH (22:35)
[2018-03-29] MEDS: DICLOFENAC 1% GEL 100 GM TUBE TOP SCH (22:35)
[2018-03-30] MEDS: INSULIN REGULAR 100 UNIT/ML SUBCUT SCH ×4 (00:54→21:37)
[2018-03-30 05:49] LABS: Basophils % 0.2 % (0.0-0.8); Hematocrit 33.3 VOL% (35.7-47.0); Hemoglobin 11.2 GM/DL (12.0-16.0); Immature Granulocytes % 2.5 %; Immature Granulocytes Absolute 0.42 #; Mean Corpuscular HGB Conc 33.6 GM/DL (32-36); Mean Corpuscular Hemoglobin 31 PG (27-34); Mean Platelet Volume 12.3 FL (9.6-12.0); Monocytes # 1.2 10*3/uL (0.11-0.8); Monocytes % 7.4 % (1.7-12.7); Neutrophils # 14.1 10*3/uL (1.4-7.4); Neutrophils % 83.9 % (38.7-73.9); Platelet Count 237 T/CUMM (130-400); Red Blood Count 3.62 MC/CUMM (3.8-5.5); Red Cell Distribution Width 12.7 % (9.3-17.3); White Blood Count 16.8 T/CUMM (4-12)
[2018-03-30 06:12] LABS: Band Neutrophils 5 % (0-10); Hypochromasia 1+; Lymphocytes 7 % (20-55); Myelocytes 1 %; Segmented Neutrophils 84 % (50-85); Total Cells Counted 100
[2018-03-30 06:13] LABS: Microcytosis 1+; Platelet Estimate Normal
[2018-03-30 06:24] LABS: Calcium 8.2 MG/DL (8.5-10.1); Potassium 3.7 MMOL/L (3.5-5.1)
[2018-03-30] MEDS: LEVOTHYROXINE 150 MCG TABLET PO SCH (06:51)
[2018-03-30 07:24] LABS: ABG HCO3 28.7 MMOL/L (20-26); ABG Oxygen Saturation 96.4 % (95-100); ABG PCO2 38.9 MM HG (35-48); ABG PH 7.486 (7.35-7.45); ABG PO2 84.4 MM HG (80-95); ABG TCO2 29.9 MMOL/L (23-27); Allen Test Positive
[2018-03-30] MEDS: AMIODARONE 200 MG TABLET PO SCH ×2 (08:39→21:39)
[2018-03-30] MEDS: INSULIN GLARGINE 100 UNIT/ML SUBCUT SCH (08:39)
[2018-03-30] MEDS: FAMOTIDINE 20 MG TABLET PO SCH ×2 (08:41→21:39)
[2018-03-30] MEDS: GLIMEPIRIDE 4 MG TABLET PO SCH ×2 (08:41→21:37)
[2018-03-30] MEDS: METOPROLOL TARTRATE 25 MG TABLET PO SCH (08:42)
[2018-03-30] MEDS: POTASSIUM CHLORIDE 20 MEQ TABLET PO PRN (08:42)
[2018-03-30] MEDS: PRAVASTATIN 20 MG TABLET PO SCH (08:43)
[2018-03-30] MEDS: DILTIAZEM INJ 100 MG in SODIUM CHLORIDE 0.9% 100 ML IV SCH (10:32)
[2018-03-30] MEDS: COLESEVELAM 625 MG TABLET PO SCH ×3 (10:32→21:52)
[2018-03-30] MEDS ORDERED: METOPROLOL TARTRATE 25 MG TABLET PO ONE (10:33)
[2018-03-30] MEDS: ZINC OXIDE PASTE 113 GM TUBE TOP SCH ×2 (11:47→21:51)
[2018-03-30] MEDS: DICLOFENAC 1% GEL 100 GM TUBE TOP SCH ×4 (11:47→23:59)
[2018-03-30] MEDS: GABAPENTIN 600 MG TABLET PO SCH (21:38)
[2018-03-30] MEDS: METOPROLOL TARTRATE 50 MG TABLET PO SCH (21:38)
[2018-03-30] MEDS: MINERAL OIL/PETROLATUM OPH OINT 3.5 GM TUBE BOTH EYES SCH (23:59)
[2018-03-31] MEDS: INSULIN REGULAR 100 UNIT/ML SUBCUT SCH ×5 (00:15→18:05)
[2018-03-31 04:56] LABS: ABG Base Excess 4.4 MMOL/L (-2.5-2.5); ABG HCO3 28.4 MMOL/L (20-26); ABG Oxygen Saturation 98.5 % (95-100); ABG PCO2 41.7 MM HG (35-48); ABG PH 7.448 (7.35-7.45); ABG TCO2 25.5 MMOL/L (23-27); Allen Test Positive
[2018-03-31 05:39] LABS: Basophils % 0.2 % (0.0-0.8); Eosinophils # 0.1 10*3/uL (0.0-0.87); Eosinophils % 0.5 % (0.00-10.9); Hematocrit 36.4 VOL% (35.7-47.0); Hemoglobin 12.3 GM/DL (12.0-16.0); Immature Granulocytes % 2.8 %; Immature Granulocytes Absolute 0.45 #; Lymphocytes # 2.1 10*3/uL (1.4-4.0); Lymphocytes % 12.8 % (21.3-54.2); Mean Corpuscular HGB Conc 33.8 GM/DL (32-36); Mean Corpuscular Hemoglobin 31 PG (27-34); Mean Corpuscular Volume 91.7 FL (87-102); Mean Platelet Volume 11.6 FL (9.6-12.0); Monocytes # 1.8 10*3/uL (0.11-0.8); Monocytes % 10.9 % (1.7-12.7); Neutrophils # 11.8 10*3/uL (1.4-7.4); Neutrophils % 72.8 % (38.7-73.9); Platelet Count 288 T/CUMM (130-400); Red Blood Count 3.97 MC/CUMM (3.8-5.5); Red Cell Distribution Width 12.6 % (9.3-17.3); White Blood Count 16.2 T/CUMM (4-12)
[2018-03-31 05:55] LABS: Osmolality,Calculated 284.5 MOS/KG (273-304); Potassium 3.5 MMOL/L (3.5-5.1)
[2018-03-31] MEDS: MAGNESIUM SULF RIDER 2 GM in PREMIX 1 EACH IV PRN (06:12)
[2018-03-31] MEDS: POTASSIUM CHLORIDE 20 MEQ TABLET PO PRN (06:13)
[2018-03-31] MEDS: LEVOTHYROXINE 150 MCG TABLET PO SCH (06:13)
[2018-03-31] MEDS ORDERED: guaiFENesin 200 MG/10 ML UDCUP PO PRN (09:30)
[2018-03-31] MEDS: INSULIN GLARGINE 100 UNIT/ML SUBCUT SCH (10:22)
[2018-03-31] MEDS: FAMOTIDINE 20 MG TABLET PO SCH ×2 (10:23→20:44)
[2018-03-31] MEDS: METOPROLOL TARTRATE 50 MG TABLET PO SCH ×2 (10:24→20:44)
[2018-03-31] MEDS: PRAVASTATIN 20 MG TABLET PO SCH (10:24)
[2018-03-31] MEDS: GLIMEPIRIDE 4 MG TABLET PO SCH ×2 (10:24→16:46)
[2018-03-31] MEDS: AMIODARONE 200 MG TABLET PO SCH ×2 (10:24→20:44)
[2018-03-31] MEDS: ZINC OXIDE PASTE 113 GM TUBE TOP SCH ×3 (10:25→22:08)
[2018-03-31] MEDS: DICLOFENAC 1% GEL 100 GM TUBE TOP SCH ×4 (10:26→21:09)
[2018-03-31] MEDS: COLESEVELAM 625 MG TABLET PO SCH ×2 (10:41→17:34)
[2018-03-31] MEDS: DILTIAZEM INJ 100 MG in SODIUM CHLORIDE 0.9% 100 ML IV SCH (11:33)
[2018-03-31] MEDS: GABAPENTIN 600 MG TABLET PO SCH (20:44)
[2018-04-01] MEDS: INSULIN REGULAR 100 UNIT/ML SUBCUT SCH ×4 (01:05→18:27)
[2018-04-01] MEDS: LEVOTHYROXINE 150 MCG TABLET PO SCH (05:46)
[2018-04-01] MEDS: MINERAL OIL/PETROLATUM OPH OINT 3.5 GM TUBE BOTH EYES SCH (05:46)
[2018-04-01 07:44] LABS: Basophils # 0.1 10*3/uL (0.0-0.2); Basophils % 0.5 % (0.0-0.8); Eosinophils # 0.2 10*3/uL (0.0-0.87); Eosinophils % 1.8 % (0.00-10.9); Hematocrit 41.6 VOL% (35.7-47.0); Hemoglobin 13.8 GM/DL (12.0-16.0); Immature Granulocytes % 5.3 %; Lymphocytes # 0.9 10*3/uL (1.4-4.0); Lymphocytes % 7.8 % (21.3-54.2); Mean Corpuscular HGB Conc 33.2 GM/DL (32-36); Mean Corpuscular Hemoglobin 31 PG (27-34); Mean Corpuscular Volume 92.4 FL (87-102); Mean Platelet Volume 11.2 FL (9.6-12.0); Monocytes # 0.3 10*3/uL (0.11-0.8); Monocytes % 2.9 % (1.7-12.7); Neutrophils # 9.3 10*3/uL (1.4-7.4); Neutrophils % 81.7 % (38.7-73.9); Platelet Count 276 T/CUMM (130-400); Red Cell Distribution Width 12.5 % (9.3-17.3); White Blood Count 11.4 T/CUMM (4-12)
[2018-04-01 08:10] LABS: Band Neutrophils 2 % (0-10); Eosinophils 2 % (0-10); Hypochromasia 1+; Lymphocytes 9 % (20-55); Segmented Neutrophils 84 % (50-85); Total Cells Counted 100
[2018-04-01 08:11] LABS: Microcytosis 1+; Platelet Estimate Normal
[2018-04-01 08:16] LABS: Calcium 8.2 MG/DL (8.5-10.1); Osmolality,Calculated 283.7 MOS/KG (273-304); Potassium 4.3 MMOL/L (3.5-5.1)
[2018-04-01 08:21] LABS: Prealbumin 18.5 MG/DL (20-40)
[2018-04-01] MEDS: INSULIN GLARGINE 100 UNIT/ML SUBCUT SCH (09:36)
[2018-04-01] MEDS: PRAVASTATIN 20 MG TABLET PO SCH (09:37)
[2018-04-01] MEDS: FAMOTIDINE 20 MG TABLET PO SCH ×2 (09:37→21:18)
[2018-04-01] MEDS: ZINC OXIDE PASTE 113 GM TUBE TOP SCH (09:37)
[2018-04-01] MEDS: AMIODARONE 200 MG TABLET PO SCH ×2 (09:37→21:18)
[2018-04-01] MEDS: DICLOFENAC 1% GEL 100 GM TUBE TOP SCH ×3 (09:37→17:57)
[2018-04-01] MEDS: GLIMEPIRIDE 4 MG TABLET PO SCH ×2 (09:37→17:57)
[2018-04-01] MEDS: METOPROLOL TARTRATE 50 MG TABLET PO SCH ×2 (09:37→21:18)
[2018-04-01] MEDS: COLESEVELAM 625 MG TABLET PO SCH ×2 (10:01→17:58)
[2018-04-01] MEDS: DILTIAZEM INJ 100 MG in SODIUM CHLORIDE 0.9% 100 ML IV SCH (10:14)
[2018-04-01] MEDS: MAGNESIUM SULF RIDER 2 GM in PREMIX 1 EACH IV PRN (10:29)
[2018-04-01] MEDS: LISINOPRIL 5 MG TABLET PO SCH (11:50)
[2018-04-01] MEDS ORDERED: PHENOL 1.4% THROAT SPRAY 177 ML BOTTLE PO PRN (16:34)
[2018-04-01] MEDS: GABAPENTIN 600 MG TABLET PO SCH (21:18)
[2018-04-02] MEDS: ZINC OXIDE PASTE 113 GM TUBE TOP SCH ×3 (00:04→20:46)
[2018-04-02] MEDS: DICLOFENAC 1% GEL 100 GM TUBE TOP SCH ×5 (00:04→20:47)
[2018-04-02] MEDS: INSULIN REGULAR 100 UNIT/ML SUBCUT SCH ×4 (00:28→20:42)
[2018-04-02] MEDS: MINERAL OIL/PETROLATUM OPH OINT 3.5 GM TUBE BOTH EYES SCH ×2 (00:55→20:47)
[2018-04-02 06:25] LABS: Basophils # 0.1 10*3/uL (0.0-0.2); Basophils % 0.3 % (0.0-0.8); Eosinophils # 0.3 10*3/uL (0.0-0.87); Eosinophils % 1.6 % (0.00-10.9); Hematocrit 36.2 VOL% (35.7-47.0); Hemoglobin 12.3 GM/DL (12.0-16.0); Immature Granulocytes % 3.3 %; Lymphocytes # 1.5 10*3/uL (1.4-4.0); Lymphocytes % 8.3 % (21.3-54.2); Mean Corpuscular Hemoglobin 31 PG (27-34); Mean Corpuscular Volume 90.5 FL (87-102); Mean Platelet Volume 12.6 FL (9.6-12.0); Monocytes % 5.2 % (1.7-12.7); Neutrophils % 81.3 % (38.7-73.9); Platelet Count 225 T/CUMM (130-400); Red Cell Distribution Width 12.7 % (9.3-17.3); White Blood Count 18.4 T/CUMM (4-12)
[2018-04-02 06:53] LABS: Osmolality,Calculated 279.8 MOS/KG (273-304); Potassium 4.2 MMOL/L (3.5-5.1)
[2018-04-02] MEDS: LEVOTHYROXINE 150 MCG TABLET PO SCH (07:04)
[2018-04-02 07:15] LABS: Band Neutrophils 4 % (0-10); Lymphocytes 5 % (20-55); Segmented Neutrophils 88 % (50-85); Total Cells Counted 100
[2018-04-02 07:16] LABS: Platelet Estimate Normal
[2018-04-02] MEDS: INSULIN GLARGINE 100 UNIT/ML SUBCUT SCH (09:13)
[2018-04-02] MEDS: GLIMEPIRIDE 4 MG TABLET PO SCH ×2 (09:13→17:16)
[2018-04-02] MEDS: AMIODARONE 200 MG TABLET PO SCH ×2 (09:13→20:43)
[2018-04-02] MEDS: FAMOTIDINE 20 MG TABLET PO SCH ×2 (09:14→20:43)
[2018-04-02] MEDS: METOPROLOL TARTRATE 50 MG TABLET PO SCH ×2 (09:15→20:42)
[2018-04-02] MEDS: LISINOPRIL 5 MG TABLET PO SCH (09:15)
[2018-04-02] MEDS: COLESEVELAM 625 MG TABLET PO SCH ×2 (09:15→17:23)
[2018-04-02] MEDS: DILTIAZEM INJ 100 MG in SODIUM CHLORIDE 0.9% 100 ML IV SCH (12:38)
[2018-04-02] MEDS: PRAVASTATIN 20 MG TABLET PO SCH (12:39)
[2018-04-02] MEDS: GABAPENTIN 600 MG TABLET PO SCH (20:43)
[2018-04-03] MEDS: INSULIN REGULAR 100 UNIT/ML SUBCUT SCH ×4 (00:31→17:38)
[2018-04-03 05:39] LABS: Basophils % 0.2 % (0.0-0.8); Eosinophils # 0.3 10*3/uL (0.0-0.87); Eosinophils % 2.1 % (0.00-10.9); Hematocrit 33.5 VOL% (35.7-47.0); Hemoglobin 11.2 GM/DL (12.0-16.0); Immature Granulocytes % 2.7 %; Lymphocytes # 2.1 10*3/uL (1.4-4.0); Lymphocytes % 14.4 % (21.3-54.2); Mean Corpuscular HGB Conc 33.4 GM/DL (32-36); Mean Corpuscular Hemoglobin 31 PG (27-34); Mean Corpuscular Volume 93.8 FL (87-102); Mean Platelet Volume 11.7 FL (9.6-12.0); Monocytes % 6.5 % (1.7-12.7); Neutrophils # 10.8 10*3/uL (1.4-7.4); Neutrophils % 74.1 % (38.7-73.9); Platelet Count 296 T/CUMM (130-400); Red Blood Count 3.57 MC/CUMM (3.8-5.5); Red Cell Distribution Width 12.8 % (9.3-17.3); White Blood Count 14.6 T/CUMM (4-12)
[2018-04-03 05:48] LABS: Calcium 7.6 MG/DL (8.5-10.1); Osmolality,Calculated 280.5 MOS/KG (273-304)
[2018-04-03] MEDS: LEVOTHYROXINE 150 MCG TABLET PO SCH (06:03)
[2018-04-03] MEDS: AMIODARONE 200 MG TABLET PO SCH ×2 (08:56→21:12)
[2018-04-03] MEDS: GLIMEPIRIDE 4 MG TABLET PO SCH ×2 (08:56→21:11)
[2018-04-03] MEDS: FAMOTIDINE 20 MG TABLET PO SCH ×2 (08:58→21:12)
[2018-04-03] MEDS: PRAVASTATIN 20 MG TABLET PO SCH (08:58)
[2018-04-03] MEDS: COLESEVELAM 625 MG TABLET PO SCH ×2 (08:59→17:30)
[2018-04-03] MEDS: INSULIN GLARGINE 100 UNIT/ML SUBCUT SCH (09:05)
[2018-04-03] MEDS: METOPROLOL TARTRATE 50 MG TABLET PO SCH ×2 (09:12→21:13)
[2018-04-03] MEDS: LISINOPRIL 5 MG TABLET PO SCH (09:13)
[2018-04-03] MEDS: ZINC OXIDE PASTE 113 GM TUBE TOP SCH ×2 (09:15→21:14)
[2018-04-03] MEDS: DICLOFENAC 1% GEL 100 GM TUBE TOP SCH ×4 (09:17→21:14)
[2018-04-03] MEDS: DILTIAZEM INJ 100 MG in SODIUM CHLORIDE 0.9% 100 ML IV SCH (14:00)
[2018-04-03] MEDS: GABAPENTIN 600 MG TABLET PO SCH (21:12)
[2018-04-03] MEDS: MINERAL OIL/PETROLATUM OPH OINT 3.5 GM TUBE BOTH EYES SCH (21:14)
[2018-04-04] MEDS: INSULIN REGULAR 100 UNIT/ML SUBCUT SCH ×5 (03:25→20:16)
[2018-04-04] MEDS: LEVOTHYROXINE 150 MCG TABLET PO SCH (06:28)
[2018-04-04] MEDS: COLESEVELAM 625 MG TABLET PO SCH ×2 (09:32→16:53)
[2018-04-04] MEDS: INSULIN GLARGINE 100 UNIT/ML SUBCUT SCH (11:02)
[2018-04-04] MEDS: LISINOPRIL 5 MG TABLET PO SCH (11:02)
[2018-04-04] MEDS: FAMOTIDINE 20 MG TABLET PO SCH ×2 (11:03→21:17)
[2018-04-04] MEDS: PRAVASTATIN 20 MG TABLET PO SCH (11:03)
[2018-04-04] MEDS: AMIODARONE 200 MG TABLET PO SCH ×2 (11:03→21:17)
[2018-04-04] MEDS: GLIMEPIRIDE 4 MG TABLET PO SCH ×2 (11:04→17:01)
[2018-04-04] MEDS: METOPROLOL TARTRATE 50 MG TABLET PO SCH ×2 (11:05→21:18)
[2018-04-04] MEDS: DICLOFENAC 1% GEL 100 GM TUBE TOP SCH ×2 (11:06→16:52)
[2018-04-04] MEDS: ZINC OXIDE PASTE 113 GM TUBE TOP SCH (11:06)
[2018-04-04] MEDS: DILTIAZEM INJ 100 MG in SODIUM CHLORIDE 0.9% 100 ML IV SCH (16:51)
[2018-04-04] MEDS: GABAPENTIN 600 MG TABLET PO SCH (21:17)
[2018-04-05] MEDS: ZINC OXIDE PASTE 113 GM TUBE TOP SCH ×2 (01:54→09:11)
[2018-04-05] MEDS: INSULIN REGULAR 100 UNIT/ML SUBCUT SCH ×3 (01:55→14:02)
[2018-04-05] MEDS: DICLOFENAC 1% GEL 100 GM TUBE TOP SCH ×3 (01:55→14:03)
[2018-04-05] MEDS: MINERAL OIL/PETROLATUM OPH OINT 3.5 GM TUBE BOTH EYES SCH (01:55)
[2018-04-05] MEDS: LEVOTHYROXINE 150 MCG TABLET PO SCH (06:20)
[2018-04-05] MEDS: COLESEVELAM 625 MG TABLET PO SCH (09:10)
[2018-04-05] MEDS: GLIMEPIRIDE 4 MG TABLET PO SCH (09:11)
[2018-04-05] MEDS: FAMOTIDINE 20 MG TABLET PO SCH (09:11)
[2018-04-05] MEDS: AMIODARONE 200 MG TABLET PO SCH (09:11)
[2018-04-05] MEDS: LISINOPRIL 5 MG TABLET PO SCH (09:11)
[2018-04-05] MEDS: METOPROLOL TARTRATE 50 MG TABLET PO SCH (09:11)
[2018-04-05] MEDS: INSULIN GLARGINE 100 UNIT/ML SUBCUT SCH (09:11)
[2018-04-05] MEDS: PRAVASTATIN 20 MG TABLET PO SCH (09:11)
[2018-04-05] MEDS: DILTIAZEM INJ 100 MG in SODIUM CHLORIDE 0.9% 100 ML IV SCH (11:38)
[2018-04-05 12:42] VITALS: BP 154/68
== END 2018-04-05 16:07 | disposition home health service (06) | DRG 870 ==
LOC: N.ED 17:55 → SUATTDRO 21:03 → N.EDINP 21:03 → N.ICU 21:45 → N.TELEN 03-30 18:29
PROVIDERS: ADMIT Internal Medicine; ATTEND Internal Medicine

== ENCOUNTER 2022-08-01 21:56 | Inpatient (IN) ==
[2022-08-01] MEDS ORDERED: PANTOPRAZOLE INJ 80 MG in SODIUM CHLORIDE 0.9% 100 ML IV STA (22:41)
[2022-08-01] MEDS ORDERED: ONDANSETRON 4 MG/2 ML VIAL IV STA (22:41)
[2022-08-01] MEDS ORDERED: PANTOPRAZOLE 40 MG VIAL IV ONE ×2 (22:41→22:49)
[2022-08-01] MEDS ORDERED: SODIUM CHLORIDE 0.9% 2,000 ML IV STA (22:41)
[2022-08-01] MEDS ORDERED: ONDANSETRON 4 MG/2 ML VIAL ONE (22:42)
[2022-08-01 23:01] LABS: Basophils # 0.1 10*3/uL (0.0-0.2); Basophils % 0.5 % (0.0-0.8); Eosinophils % 0.1 % (0.00-10.9); Hematocrit 38.2 VOL% (35.7-47.0); Hemoglobin 12.6 GM/DL (12.0-16.0); Immature Granulocytes Absolute 0.46 #; Lymphocytes # 1.6 10*3/uL (1.4-4.0); Lymphocytes % 14.1 % (21.3-54.2); Mean Corpuscular Volume 97.7 FL (87-102); Mean Platelet Volume 11.6 FL (9.6-12.0); Monocytes # 1.2 10*3/uL (0.11-0.8); Monocytes % 10.3 % (1.7-12.7); Platelet Count 240 T/CUMM (130-400); Red Blood Count 3.91 MC/CUMM (3.8-5.5); Red Cell Distribution Width 13.2 % (9.3-17.3); White Blood Count 11.5 T/CUMM (4-12)
[2022-08-01] MEDS: DOPamine 800 MG/250 ML PREMIX IV PRN (23:07)
[2022-08-01 23:08] LABS: INR 1.4; PT Patient Result 15.6 SECS (10.1-12.1); Partial Thromboplastin Time 30.8 SECS (23.7-32.9)
[2022-08-01 23:16] LABS: Albumin 2.8 G/DL (3.4-5.0); Bilirubin,Total 1.3 MG/DL (0.20-1.00); Calcium 9.6 MG/DL (8.5-10.1); Osmolality,Calculated 269.8 MOS/KG (273-304); Potassium 5.8 MMOL/L (3.5-5.1); Total Protein 6.4 G/DL (6.4-8.2)
[2022-08-01 23:56] LABS: Arterial Base Excess iSTAT -11 MMOL/L (-2.5-2.5); Arterial Bicarbonate iSTAT 17.7 MMOL/L (20-26); Arterial O2 Saturation iSTAT 79 % (95-100); Arterial PCO2 iSTAT 49 MM HG (35-48); Arterial PO2 iSTAT 55 MM HG (80-95); Arterial Total CO2 iSTAT 19 MMO/L (23-27); Arterial pH iSTAT 7.167 (7.35-7.45)
[2022-08-02] MEDS ORDERED: SODIUM CHLORIDE 0.9% 1,000 ML IV STA (00:05)
[2022-08-02 00:53] LABS: Bacteria,Urine Occasional /HPF (Few); Bilirubin,Urine Negative (Negative); Blood, Urine Negative (Negative); Glucose,Urine (UA) Negative (Negative); Hyaline Casts,Urine 12 /LPF (0-3); Ketones,Urine Negative (Negative); Mucus,Urine Occasional /LPF (Occasional); Nitrite,Urine Negative (Negative); Protein,Urine 100 mg/dL (Negative); RBC,Urine 1 /HPF (0-4); Squamous Epithelial Cell,Urine Occasional /HPF (0-10); Urine Appearance Slightly Hazy (Clear); Urine Color Yellow (Yellow); Urine Specific Gravity 1.015 (1.001-1.035); Urine Urobilinogen < 2.0 eU/dL (<2.0)
[2022-08-02] MEDS ORDERED: PIPERACILLIN/TAZOBACTAM 3,375 MG in SODIUM CHLORIDE 0.9% 100 ML IV STA (00:56)
[2022-08-02] MEDS ORDERED: METOCLOPRAMIDE 10 MG/2 ML VIAL IV STA ×2 (01:04→01:05)
[2022-08-02] MEDS ORDERED: METOCLOPRAMIDE 10 MG/2 ML VIAL ONE (01:04)
[2022-08-02] MEDS ORDERED: ALBUTEROL 2.5 MG/3 ML NEB RESP TX PRN (01:25)
[2022-08-02] MEDS ORDERED: ONDANSETRON 4 MG/2 ML VIAL IV PRN (01:25)
[2022-08-02] MEDS ORDERED: SODIUM CHLORIDE 0.9% 1,000 ML IV SCH (01:30)
[2022-08-02 01:55] LABS: Hematocrit 37.6 VOL% (35.7-47.0); Hemoglobin 12.3 GM/DL (12.0-16.0)
[2022-08-02] MEDS: VASOPRESSIN 100 UNITS in SODIUM CHLORIDE 0.9% 95 ML IV SCH ×3 (02:05→17:51)
[2022-08-02] MEDS ORDERED: ONDANSETRON 4 MG/2 ML VIAL IV STA (02:16)
[2022-08-02 04:57] LABS: Basophils % 0.3 % (0.0-0.8); Eosinophils % 0.1 % (0.00-10.9); Hematocrit 38.6 VOL% (35.7-47.0); Hemoglobin 12.4 GM/DL (12.0-16.0); Immature Granulocytes Absolute 0.25 #; Lymphocytes # 1.5 10*3/uL (1.4-4.0); Lymphocytes % 12.1 % (21.3-54.2); Mean Corpuscular HGB Conc 32.1 GM/DL (32-36); Mean Corpuscular Volume 100.3 FL (87-102); Mean Platelet Volume 11.5 FL (9.6-12.0); Monocytes # 1.1 10*3/uL (0.11-0.8); Monocytes % 8.8 % (1.7-12.7); Neutrophils % 76.7 % (38.7-73.9); Platelet Count 224 T/CUMM (130-400); Red Blood Count 3.85 MC/CUMM (3.8-5.5); Red Cell Distribution Width 13.1 % (9.3-17.3); White Blood Count 12.2 T/CUMM (4-12)
[2022-08-02] MEDS ORDERED: PANTOPRAZOLE INJ 200 MG in SODIUM CHLORIDE 0.9% 250 ML IV SCH (05:00)
[2022-08-02 05:03] LABS: Arterial Base Excess iSTAT -12 MMOL/L (-2.5-2.5); Arterial O2 Saturation iSTAT 100 % (95-100); Arterial PCO2 iSTAT 39 MM HG (35-48); Arterial PO2 iSTAT 274 MM HG (80-95); Arterial Total CO2 iSTAT 16 MMO/L (23-27); Arterial pH iSTAT 7.192 (7.35-7.45)
[2022-08-02] MEDS ORDERED: PROMETHAZINE INJ 12.5 MG in SODIUM CHLORIDE 0.9% 50 ML IV PRN (05:21)
[2022-08-02 05:28] LABS: Albumin 2.4 G/DL (3.4-5.0); Bilirubin,Total 1.6 MG/DL (0.20-1.00); Calcium 8.1 MG/DL (8.5-10.1); Osmolality,Calculated 270.5 MOS/KG (273-304); Potassium 5.7 MMOL/L (3.5-5.1); Total Protein 5.7 G/DL (6.4-8.2)
[2022-08-02] MEDS ORDERED: PROMETHAZINE 25 MG/1 ML VIAL ONE (05:29)
[2022-08-02] MEDS ORDERED: SODIUM BICARBONATE 50 MEQ/50 ML VIAL IV ONE (05:34)
[2022-08-02] MEDS ORDERED: DEXTROSE 50% 25 GM/50 ML VIAL IV STA (05:56)
[2022-08-02] MEDS ORDERED: DEXTROSE 50% 25 GM/50 ML SYRINGE IV ONE (05:57)
[2022-08-02] MEDS ORDERED: SODIUM BICARB INJ 150 MEQ in STERILE WATER INJ 1,000 ML IV SCH (06:00)
[2022-08-02 06:38] LABS: INR 1.8; PT Patient Result 18.9 SECS (10.1-12.1)
[2022-08-02] MEDS: HYDROCORTISONE 100 MG VIAL IV SCH ×2 (06:45→13:21)
[2022-08-02] MEDS: ALBUTEROL/IPRATROPIUM 3 ML NEB RESP TX SCH ×3 (06:50→19:00)
[2022-08-02] MEDS ORDERED: NOREPINEPHRINE 8 MG in SODIUM CHLORIDE 0.9% 242 ML IV PRN (07:12)
[2022-08-02] MEDS ORDERED: NOREPINEPHRINE 4 MG/4 ML VIAL IV ONE (07:20)
[2022-08-02] MEDS ORDERED: ETOMIDATE 20 MG/10 ML VIAL IV ONE ×2 (09:09→09:39)
[2022-08-02] MEDS ORDERED: ROCURONIUM 100 MG/10 ML VIAL IV ONE ×2 (09:10→09:40)
[2022-08-02 09:34] LABS: Arterial Base Excess iSTAT -6 MMOL/L (-2.5-2.5); Arterial Bicarbonate iSTAT 18.7 MMOL/L (20-26); Arterial O2 Saturation iSTAT 100 % (95-100); Arterial PCO2 iSTAT 34 MM HG (35-48); Arterial PO2 iSTAT 332 MM HG (80-95); Arterial Total CO2 iSTAT 20 MMO/L (23-27); Arterial pH iSTAT 7.351 (7.35-7.45)
[2022-08-02] MEDS: DOPamine 800 MG/250 ML PREMIX IV PRN (10:21)
[2022-08-02 10:40] LABS: Hematocrit 39.7 VOL% (35.7-47.0); Hemoglobin 13.4 GM/DL (12.0-16.0)
[2022-08-02] MEDS: PANTOPRAZOLE INJ 200 MG in SODIUM CHLORIDE 0.9% 250 ML IV SCH (10:57)
[2022-08-02] MEDS ORDERED: SODIUM CHLORIDE 0.9% 1,000 ML IV PRN (11:08)
[2022-08-02] MEDS ORDERED: PHYTONADIONE INJ 10 MG in SODIUM CHLORIDE 0.9% 50 ML IV ONE (11:08)
[2022-08-02] MEDS: SODIUM CHLORIDE 0.9% 1,000 ML IV SCH ×3 (11:43→19:40)
[2022-08-02] MEDS: SODIUM BICARB INJ 100 MEQ in DEXTROSE 5% 1,000 ML IV SCH ×2 (11:43→12:21)
[2022-08-02] MEDS ORDERED: VANCOMYCIN INJ 1,000 MG in SODIUM CHLORIDE 0.9% 250 ML IV PRN (12:00)
[2022-08-02] MEDS ORDERED: VANCOMYCIN INJ 1,000 MG in SODIUM CHLORIDE 0.9% 250 ML IV ONE (12:00)
[2022-08-02 12:31] LABS: Hematocrit 39.6 VOL% (35.7-47.0); Hemoglobin 13.2 GM/DL (12.0-16.0)
[2022-08-02] MEDS ORDERED: PIPERACILLIN/TAZOBACTAM 3,375 MG in SODIUM CHLORIDE 0.9% 100 ML IV SCH (13:00)
[2022-08-02] MEDS ORDERED: SODIUM CHLORIDE 0.9% 500 ML IV ONE (14:04)
[2022-08-02 15:20] VITALS: BP 112/57
[2022-08-02] MEDS ORDERED: MORPHINE 2 MG/1 ML SYRINGE IV PRN (19:26)
[2022-08-02] MEDS ORDERED: LORazepam 2 MG/1 ML VIAL IV PRN (19:26)
[2022-08-03] MEDS ORDERED: VANCOMYCIN INJ 1,000 MG in SODIUM CHLORIDE 0.9% 250 ML IV PRN (13:00)
== END 2022-08-02 19:46 | disposition expired | DRG 871 ==
LOC: N.ED 21:56 → N.EDINP 08-02 01:20 → N.ICU 08-02 09:29
PROVIDERS: ADMIT Internal Medicine; ATTEND Internal Medicine